=== PATIENT | female | born 1970 | race Caucasian/White ===

== ENCOUNTER 2018-01-24 21:19 | Inpatient (IN) | payer SELFPAY ==
[~2018-01-24] VITALS: Ht 167.6 cm; Wt 55.5 kg
[2018-01-24 21:25] VITALS: BP 80/43; PULSE 87; RESP 15; TEMP 97.8; O2SAT 100
[2018-01-24] MEDS ORDERED: THIAMINE INJ 100 MG in SODIUM CHLORIDE 0.9% INJ 100 ML IV ONE (21:45)
[2018-01-24] MEDS ORDERED: SODIUM CHLORID 0.9% 500 ML INJ 500 ML IV ONE (21:45)
--- NOTE | 2018-01-24 21:57 | PD ---
HPI Chief Complaint: Neuro Symptoms/ Deficits Time Seen by Provider: 21:28 Travel History International Travel<30 days: No Contact w/Intl Traveler<30days: No Traveled to known affect area: No History of Present Illness HPI The patient is a 47 year old female who presents to the [facility] emergency department with a history of slurred speech that reportedly began a couple of hours prior to arrival. The patient presents with her daughter. The patient has not been eating or drinking liquids well over the last week other than binge drinking on alcohol. The patient has a known history of alcohol abuse and alcohol-related withdrawal symptoms with alcohol related withdrawal seizures that last occurred 2 months ago. According to the patient she usually drinks a a bottle of wine every other day. She reports that she last drank wine yesterday evening. The patient denies having any one-sided weakness, numbness or tingling, or facial droop. The patient's daughter reports that she noticed that she was jaundiced, slightly yellow appearing today. She reports that she was jaundiced in the past, 2 years ago and at that time also diagnosed with a GI bleed related to peptic ulcer disease. Her daughter reports that she does not have a primary care physician. The patient is hesitant to provide her history due to difficulty speaking from the slurred speech. The patient arrives awake and aware, alert to person, place, situation, however not time. A review of systems otherwise, the patient has been complaining of abdominal pain. She reports that the pain over the last week has been in the lower abdomen. She reports that she last moved her bowels yesterday. She denies having any blood in her stool or black or tarry stools. She reports that her stool was brown. She denies having any vomiting. Review of systems otherwise she denies having any recent fevers, cough, congestion, neck pain, chest pain, shortness of breath, urinary symptoms, or other neurologic symptoms. The patient incidentally reports that 2-3 days ago she had left foot pain. The left foot pain is now resolved. Her daughter reports that she did give her a bottle of Tylenol arthritis for pain. She is unsure how many she took. [facility] Past Medical History Narrative Medical The patient's past medical history is significant for alcohol abuse, history of jaundice 2 years ago, history of peptic ulcer disease with a GI bleed 2 years ago. ?: Not Past Surgical History Narrative Surgical The patient's past surgical history is significant for tonsillectomy. Social History Alcohol Use: Yes (A bottle of wine every other day) Tobacco Use: No Substance Use: No Allergies-Medications (Allergen,Severity, Reaction): Coded Allergies: No Known Allergies (Verified Allergy, Unknown, 01/24/18) Narrative Medication One half of an alcohol-related withdrawal medication the patient's daughter cannot recall the name of. Review of Systems Except as stated in HPI: all other systems reviewed are Neg General / Constitutional: No: Fever Eyes: No: Visual changes HENT: No: Headaches Cardiovascular: No: Chest Pain or Discomfort Respiratory: No: Shortness of Breath Gastrointestinal: Positive: Abdominal Pain, Loss of Appetite, No: Nausea, Vomiting, Diarrhea, Changes in Bowel Habits, Indigestion Genitourinary: No: Dysuria Musculoskeletal: Positive: Myalgias, Pain Skin: No Rash Neurologic: Positive: Tremor, Slurred Speech, No: Weakness, Focal Abnormalities , Change in Mentation, Sensory Disturbance Psychiatric: No: Depression Endocrine: No: Polydipsia Hematologic/Lymphatic: No: Easy Bruising Physical Exam Narrative General: The patient is a well-developed well-nourished female in no acute distress. Head and Neck exam: Head is normocephalic atraumatic. Eyes: EOMI, pupils are equal round and reactive to light. She has slight conjunctival injection noted. Slight scleral icterus noted. Nose: Midline septum with pink mucous membranes Mouth: Dentition unremarkable. Dry mucus membranes. Posterior oropharynx is not erythematous. No tonsillar hypertrophy. Uvula midline. Airway patent. Neck: No palpable lymphadenopathy. No nuchal rigidity. No thyromegaly. Cardiovascular: Regular rate and rhythm without murmurs, gallops, or rubs. No pulse deficit to the extremities on simultaneous auscultation and palpation of her radial artery. Lungs: Clear to auscultation bilaterally. No wheezes, rhonchi, or rales. Abdomen: Soft, without tenderness to palpation in all 4 quadrants of the abdomen. No guarding, rebound, or rigidity. Normal bowel sounds are audible. No tenderness on palpation of McBurney's point. Extremities: No clubbing, cyanosis, or edema. 2+ pulses in all 4 extremities. No calf tenderness on palpation. Back: No costovertebral angle tenderness to palpation. Neurologic Exam: Cranial nerves 2-12 were intact on exam. Strength is 5/5 in all 4 extremities. No sensory deficits noted. Mildly tremulous on examination. No asterixis. Skin Exam: No rash noted. Intact skin that is warm and dry. Data Data Last Documented VS Vital Signs Date Time Temp Pulse Resp B/P (MAP) Pulse Ox O2 Delivery O2 Flow Rate FiO2 01/24/18 23:45 92 14 77/42 (54) 01/24/18 21:25 97.8 100 Room Air Orders Orders Electrocardiogram (01/24/18 21:29) Complete Blood Count With Diff (01/24/18 21:29) Comprehensive Metabolic Panel (01/24/18:29) Creatine Kinase (Cpk) (01/24/18 21:29) Troponin I (01/24/18 21:29) Prothrombin Time / Inr (Pt) (01/24/18 21:29) Act Partial Throm Time (Ptt) (01/24/18:29) Urinalysis - C+S If Indicated (01/24/18 21:29) Magnesium (Mg) (01/24/18 21:29) Ammonia (01/24/18 21:29) Chest, Single Ap (01/24/18 21:29) Ct Brain W/O Iv Contrast(Rout) (01/24/18 21:29) Iv Access Insert/Monitor (01/24/18 21:29) Ecg Monitoring (01/24/18 21:29) Oximetry (01/24/18 21:29) Ed Urine Pregnancytest Poc (01/24/18 21:29) Drug Screen, Random Urine (01/24/18 21:29) Alcohol (Ethanol) (01/24/18 21:29) Salicylates (Aspirin) (01/24/18 21:29) Tylenol (Acetaminophen) (01/24/18 21:29) Sodium Chlorid 0.9% 500 Ml Inj (Ns 500 M (01/24/18 21:45) Thiamine Inj (Thiamine Inj) (01/24/18 21:45) Blood Glucose (01/24/18 21:44) Foot, Limited (2vws) (01/24/18 21:57) Bedside Glucose Q15M (01/24/18 22:33) Hypoglycemia 70 Mg/Dl Or < (01/24/18 22:33) Dextrose 50% In Ed (Vial) Inj (D50w (Vi (01/24/18 22:45) Acetylcysteine Inj (Acetadote Inj) (01/24/18 23:30) Acetylcysteine Inj (Acetadote Inj) (01/25/18 00:30) Acetylcysteine Inj (Acetadote Inj) (01/25/18 04:30) CKMB (01/24/18 22:05) CKMB% (01/24/18 22:05) Sodium Chlor 0.9% 1000 Ml Inj (Ns 1000 M (01/24/18 23:30) Dextrose 5% In Wate 1000ml Inj (D5w 1000 (01/24/18 23:45) Ct Abd/Pel W/O Iv Contrast (01/24/18 23:33) Blood Glucose (01/24/18 23:33) Urinary Catheter Insert/Apply (01/24/18 23:33) Drug Screen, Random Urine (01/24/18 23:41) Admit To Inpatient (01/24/18 ) Code Status (01/24/18 23:43) Vital Signs (Adult) ROSELINE.Q1H (01/24/18 23:43) Elevate Head Of Bed (01/24/18 23:43) Activity Oob With Assistance (01/24/18 23:43) Neuro Checks . ORDERED (01/24/18 23:43) Intake + Output Q1H (01/24/18 23:43) Diet Npo (01/25/18 Breakfast) Sodium Chlor 0.9% 1000 Ml Inj (Ns 1000 M (01/24/18 23:43) Sodium Chloride 0.9% Flush (Ns Flush) (01/24/18 23:45) Sodium Chloride 0.9% Flush (Ns Flush) (01/25/18 09:00) Lorazepam Inj (Ativan Inj) (01/24/18 23:45) Ondansetron Inj (Zofran Inj) (01/24/18 23:45) Temazepam (Restoril) (01/24/18 23:45) Albuterol-Ipratropium Neb (Duoneb Neb) (01/24/18 23:45) Complete Blood Count With Diff (01/25/18 04:00) Comprehensive Metabolic Panel (01/25/18 04:00) Creatine Kinase (Cpk) (01/24/18 23:43) Act Partial Throm Time (Ptt) (01/25/18 04:00) Prothrombin Time / Inr (Pt) (01/25/18 04:00) Magnesium (Mg) (01/25/18 04:00) Phosphorus (Po4) (01/25/18 04:00) Lactic Acid (01/25/18 04:00) Pt Request For Service (01/24/18 23:43) Consult Gastroenterology (01/24/18 ) Avid Editor / Telemetry ROSELINE.Q8H (01/24/18 23:43) Scd Bilateral/Knee High ROSELINE.BID (01/24/18 23:43) Aki Bilateral/Knee High ROSELINE.QSHIFT (01/24/18 23:43) ^ Initiate Protocol (01/24/18 23:43) Instruction (01/24/18 23:43) Misc Nursing Information (01/24/18 23:45) Chlorhexidine 2% Cloth (Chlorhexidine 2% (01/25/18 04:00) Chlorhexidine 2% Cloth (Chlorhexidine 2% (01/24/18 23:45) Mrsa Pcr Surveillance (01/24/18 23:43) Docusate Sodium-Senna (Latoya-Colace) (01/25/18 09:00) Magnesium Hydroxide Liq (Milk Of Magnesi (01/24/18 23:45) Sennosides (Senokot) (01/24/18 23:45) Bisacodyl Supp (Dulcolax Supp) (01/24/18 23:45) Lactulose Liq (Lactulose Liq) (01/24/18 23:45) Inpatient Certification (01/24/18 ) Us Abdomen Liver (01/24/18 ) Pantoprazole Inj (Protonix Inj) (01/25/18 00:00) Hepatitis Profile (01/24/18 23:57) Multivitamin Inj (Mvi-12 Inj)... (01/25/18 02:00) Hydromorphone Pf Inj (Dilaudid Pf Inj) (01/25/18 00:15) Basic Metabolic Panel (Bmp) (01/25/18 00:00) Beta Hydroxybutyrate (Acetone) (01/25/18 00:00) Osmolality,Serum (01/25/18 00:00) Osmolality, Urine (01/25/18 00:00) Admit Order (Ed Use Only) (01/25/18 00:00) Dextrose 50% In Ed (Syr) Inj (D50w (Syr (01/25/18 00:00) Labs Laboratory Tests Test 01/24/18 22:05 White Blood Count 17.2 TH/MM3 Red Blood Count 3.77 MIL/MM3 Hemoglobin 12.3 GM/DL Hematocrit 38.6 % Mean Corpuscular Volume 102.6 FL Mean Corpuscular Hemoglobin 32.7 PG Mean Corpuscular Hemoglobin Concent 31.9 % Red Cell Distribution Width 13.7 % Platelet Count 53 TH/MM3 Mean Platelet Volume 9.4 FL Neutrophils (%) (Auto) 93.3 % Lymphocytes (%) (Auto) 4.5 % Monocytes (%) (Auto) 2.0 % Eosinophils (%) (Auto) 0.1 % Basophils (%) (Auto) 0.1 % Neutrophils # (Auto) 16.1 TH/MM3 Lymphocytes # (Auto) 0.8 TH/MM3 Monocytes # (Auto) 0.3 TH/MM3 Eosinophils # (Auto) 0.0 TH/MM3 Basophils # (Auto) 0.0 TH/MM3 CBC Comment AUTO DIFF Differential Total Cells Counted 100 Neutrophils % (Manual) 50 % Band Neutrophils % 44 % Lymphocytes % 5 % Neutrophils # (Manual) 16.3 TH/MM3 Myelocytes 1 % Differential Comment FINAL DIFF MANUAL Toxic Vacuolation PRESENT Platelet Estimate LOW Platelet Morphology Comment NORMAL Prothrombin Time 50.7 SEC Prothromb Time International Ratio 5.1 RATIO Activated Partial Thromboplast Time 49.2 SEC Blood Urea Nitrogen 25 MG/DL Creatinine 3.36 MG/DL Random Glucose 42 MG/DL Total Protein 6.7 GM/DL Albumin 3.9 GM/DL Calcium Level 8.7 MG/DL Magnesium Level 2.6 MG/DL Alkaline Phosphatase 275 U/L Aspartate Amino Transf (AST/SGOT) 37103 U/L Alanine Aminotransferase (ALT/SGPT) 3107 U/L Total Bilirubin 6.5 MG/DL Sodium Level 126 MEQ/L Potassium Level 5.0 MEQ/L Chloride Level 79 MEQ/L Carbon Dioxide Level 7.5 MEQ/L Anion Gap 40 MEQ/L Estimat Glomerular Filtration Rate 15 ML/MIN Total Creatine Kinase 891 U/L Creatine Kinase MB 14.6 NG/ML Creatine Kinase MB % 1.6 % Troponin I 0.22 NG/ML Salicylates Level LESS THAN 1.7 MG/DL Acetaminophen Level 29.4 MCG/ML Ethyl Alcohol Level LESS THAN 3 MG/DL MDM Medical Decision Making Medical Screen Exam Complete: Yes Emergency Medical Condition: Yes Medical Record Reviewed: Yes Differential Diagnosis Alcohol related withdrawal syndrome, versus dehydration, versus acute renal failure, versus hepatic encephalopathy, versus Tylenol toxicity Narrative Course During the course of the patient's emergency department visit, the patient's history, examination, and differential diagnosis were reviewed with the patient. The patient was placed on a lacquer polisher with oximetry and frequent blood pressure monitoring. The patient had IV access obtained and blood work sent for analysis. The patient had an EKG done on arrival that shows a sinus rhythm heart rate of 92, QRS duration 103 ms, QTC [address] segment elevation.The patient was initially provided normal saline at 500 mL bolus, thiamine 100 mg IV. An Accu-Chek will be done. The patient's Accu-Chek was reportedly 50. The patient was given orange juice. The patient was given a half amp of D50. Repeat evaluation the patient' s blood sugar was noted to be 45. Another half amp of D50 was administered. The patient was started on D5W at a maintenance rate. The patient's INR is 5.1. As the patient is not on any anticoagulation a call was placed out to the lab to request the patient's Tylenol level which was still pending. They reported that the patient was having her blood further diluted as a Tylenol level was noted to be elevated. Acetadote was written to be started. Poison control was contacted. The Tylenol level ultimately ended up being 29.4. The patient's laboratory studies were reviewed and remarkable for white count of 17.2, hemoglobin 12.3, platelets 53, neutrophils 50, bands 44, lymphocytes 5 , CMP is remarkable for sodium of 126, chloride 79, CO2 7.5, BUN 25, anion gap 40, creatinine 3.36, glucose 42, magnesium 2.6, total bilirubin 6.5, AST 21,929 , ALT 31, alk phos 275, CPK 891 with an MB percent of 1.6, troponin I 0.22, serum osmolality is 306, ammonia level is elevated at 260. Radiology studies were reviewed and remarkable for a CT scan of the brain that showed no acute abnormality. Chest x-ray showed no acute abnormality. Left foot x-ray showed no acute abnormality. The patient was difficult to obtain IV access and. The patient had an ultrasound obtained IV and her extremity, however as she was altered she moved around and the IV infiltrated. A second ultrasound-guided IV was placed in her other arm. The patient required additional access, therefore an external jugular IV was placed by me in the right side of the patient's neck with an 18- gauge Angiocath. The patient tolerated the procedure well. A Patel catheter was placed to gravity to monitor the patient's urine output due to her acute renal failure. The patient had additional IV fluids administered, a second liter of normal saline was administered. The patient's results were discussed with the patient, including the plan of care. I explained that further testing and/ or monitoring is indicated based on the patient's history, examination, and/ or laboratory findings. Therefore, I recommended admission for additional evaluation. The patient expressed understanding and was agreeable with this plan. The patient was admitted to the hospital in critical condition and sent to a bed under the care of the head strength and conditioning coach service. Critical Care Narrative Aggregate critical care time was 41 minutes. Time to perform other separately billable procedures was not included in the critical care time. My time did not include minutes spent treating any other patients simultaneously or on activities that did not directly contribute to the patient's treatment. The services I provided to this patient were to treat and/or prevent clinically significant deterioration that could result in: Respiratory failure related to fluid overload from crystalloid resuscitation , versus cardiovascular collapse I provided critical care services requiring my management, as noted below: Chart data review, documentation time, medication orders and management, vital sign assessments/reviewing monitor data, ordering and reviewing lab tests, ordering and interpreting/reviewing x-rays and diagnostic studies, care of the patient and discussion of the patient with the admitting physicians. Physician Communication Physician Communication The patient's case including history, pertinent physical examination findings, and laboratory studies were discussed with Dr. Pathak. It was agreed that the patient would be admitted to the head strength and conditioning coach's service. Diagnosis Primary Impression: Liver failure Qualified Codes: K72.00 - Acute and subacute hepatic failure without coma Additional Impression: Renal failure Qualified Codes: N17.9 - Acute kidney failure, unspecified Admitting Information Admitting Physician Requests: Admit Rina Simmons MD Jan 24, 2018 21:57
[2018-01-24 22:43] LABS: AUTOMATED NEUTROPHIL # 16.1 TH/MM3 (1.8-7.7); BASOPHIL % 0.1 % (0.0-2.0); EOSINOPHIL % 0.1 % (0.0-4.0); HEMATOCRIT 38.6 % (35.0-46.0); HEMOGLOBIN 12.3 GM/DL (11.6-15.3); LYMPH % 4.5 % (9.0-44.0); LYMPHOCYTE # 0.8 TH/MM3 (1.0-4.8); MEAN CELL VOLUME 102.6 FL (80.0-100.0); MEAN CORPUSCULAR HEMOGLOBIN 32.7 PG (27.0-34.0); MEAN CORPUSCULAR HGB CONC 31.9 % (32.0-36.0); MEAN PLATELET VOLUME 9.4 FL (7.0-11.0); MONOCYTE # 0.3 TH/MM3 (0-0.9); NEUT % 93.3 % (16.0-70.0); PLATELET COUNT 53 TH/MM3 (150-450); RED BLOOD COUNT 3.77 MIL/MM3 (4.00-5.30); RED CELL DISTRIBUTION WIDTH 13.7 % (11.6-17.2); WHITE BLOOD COUNT 17.2 TH/MM3 (4.0-11.0)
[2018-01-24 22:47] LABS: INTERNATIONAL NORMALIZED RATIO 5.1 RATIO; PROTHROMBIN TIME - PATIENT 50.7 SEC (9.8-11.6)
--- NOTE | 2018-01-24 23:02 | RADRPT ---
EXAM DATE/TIME: 01/24/2018 22:53 [facility] COMPARISON: No previous studies available for comparison. INDICATIONS : Weakness with slurred speech. RADIATION DOSE: 36.51 CTDIvol (mGy) MEDICAL HISTORY : None SURGICAL HISTORY : None. ENCOUNTER: Initial ACUITY: 1 day PAIN SCALE: 0/10 LOCATION: cranial TECHNIQUE: Multiple contiguous axial images were obtained of the head. Using automated exposure control and adj ustment of the mA and/or kV according to patient size, radiation dose was kept as low as reasonably a chievable to obtain optimal diagnostic quality images. DICOM format image data is available electro nically for review and comparison. FINDINGS: CEREBRUM: Mild diffuse cerebral volume loss. The ventricles are normal for age. No evidence of midline shift, mass lesion, hemorrhage or acute infarction. No extra-axial fluid collections are seen. POSTERIOR FOSSA: Moderate cerebellar volume loss. The cerebellum and brainstem are intact. The 4th ventricle is midli ne. The cerebellopontine angle is unremarkable. EXTRACRANIAL: The visualized portion of the orbits is intact. SKULL: The calvaria is intact. No evidence of skull fracture. CONCLUSION: 1. Mild cerebral and moderate cerebellar volume loss, out of proportion to age. 2. No acute intracranial abnormality. Enrico Guo MD on January 24, 2018 at 23:00 Board Certified Radiologist. This report was verified electronically.
--- NOTE | 2018-01-24 23:09 | RADRPT ---
EXAM DATE/TIME: 01/24/2018 22:42 [facility] COMPARISON: No previous studies available for comparison. INDICATIONS : New onset of neurological deficits and slurred speech. MEDICAL HISTORY : None. SURGICAL HISTORY : None. ENCOUNTER: Initial ACUITY: 1 day PAIN SCORE: 0/10 LOCATION: Bilateral chest FINDINGS: A single view of the chest demonstrates the lungs to be symmetrically aerated without evidence of mas s, infiltrate or effusion. The cardiomediastinal contours are unremarkable. Osseous structures are intact. CONCLUSION: 1. No acute cardiopulmonary disease. Enrico Guo MD on January 24, 2018 at 23:08 Board Certified Radiologist. This report was verified electronically.
--- NOTE | 2018-01-24 23:10 | RADRPT ---
EXAM DATE/TIME: 01/24/2018 22:45 [facility] COMPARISON: No previous studies available for comparison. INDICATIONS : Pain. MEDICAL HISTORY : None. SURGICAL HISTORY : None. ENCOUNTER: Initial ACUITY: 1 day PAIN SCORE: 10 LOCATION: Left foot FINDINGS: Two view examination of the left foot demonstrates no soft tissue swelling, dislocation, or fracture. The calcaneus is intact. Bony mineralization is normal. CONCLUSION: 1. No acute fracture or dislocation. Enrico Guo MD on January 24, 2018 at 23:09 Board Certified Radiologist. This report was verified electronically.
[2018-01-24] MEDS: DEXTROSE 50% IN WATER 50 ML VIAL(D50) IV PUSH PRN (23:17)
[2018-01-24 23:22] LABS: ACETAMINOPHEN 29.4 MCG/ML (10.0-30.0); ALBUMIN 3.9 GM/DL (3.4-5.0); ALKALINE PHOSPHATASE 275 U/L (45-117); BICARBONATE 7.5 MEQ/L (21.0-32.0); BLOOD UREA NITROGEN 25 MG/DL (7-18); CALCIUM 8.7 MG/DL (8.5-10.1); CHLORIDE 79 MEQ/L (98-107); CREATININE 3.36 MG/DL (0.50-1.00); GLOMERULAR FILTRATION RATE 15 ML/MIN (>89); MAGNESIUM 2.6 MG/DL (1.5-2.5); SODIUM (NA) 126 MEQ/L (136-145); TOTAL BILIRUBIN ADULT 6.5 MG/DL (0.2-1.0); TOTAL PROTEIN 6.7 GM/DL (6.4-8.2); TROPONIN I 0.22 NG/ML (0.02-0.05)
[2018-01-24 23:24] LABS: ALT (GPT) 3107 U/L (10-53)
[2018-01-24] MEDS ORDERED: WATER IV ONE ×2 (23:30)
[2018-01-24] MEDS ORDERED: SODIUM CHLOR 0.9% 1000 ML INJ 1,000 ML IV ONE (23:30)
[2018-01-24] MEDS ORDERED: DEXTROSE 5% IV ONE ×2 (23:30)
[2018-01-24] MEDS ORDERED: ACETYLCYSTEINE IV ONE ×2 (23:30)
--- NOTE | 2018-01-24 23:42 | HHI.HP ---
[facility] Service Critical Care Medicine Primary Care Physician No Primary Care Physician Admission Diagnosis Diagnosis: Travel History International Travel<30 Days: No Contact w/Intl Traveler <30 Da: No Traveled to Known Affected Are: No History of Present Illness 47 year old female who presents to the [facility] emergency department with a history of slurred speech that reportedly began a couple of hours prior to arrival. The patient presents with her daughter. The patient has not been eating or drinking liquids well over the last week other than binge drinking on alcohol. The patient has a known history of alcohol abuse and alcohol-related withdrawal symptoms with alcohol related withdrawal seizures that last occurred 2 months ago. According to the patient she usually drinks a a bottle of wine every other day. She reports that she last drank wine yesterday evening. The patient denies having any one-sided weakness, numbness or tingling, or facial droop. The patient's daughter reports that she noticed that she was jaundiced, slightly yellow appearing today. She reports that she was jaundiced in the past , 2 years ago and at that time also diagnosed with a GI bleed related to peptic ulcer disease. Her daughter reports that she does not have a primary care physician. The patient is hesitant to provide her history due to difficulty speaking from the slurred speech. She reports also the pain over the last week that has been in the lower abdomen. She reports that she last moved her bowels yesterday. She denies having any blood in her stool or black or tarry stools. She reports that her stool was brown. She denies having any vomiting. Her daughter reports that she did give her a bottle of Tylenol arthritis for pain. She is unsure how many she took. Review of Systems Constitutional: COMPLAINS OF: Fatigue, Dizziness, Change in appetite, DENIES: Diaphoretic episodes, Fever, Weight gain, Weight loss, Chills, Night Sweats Endocrine: DENIES: Abnorml menstrual pattern, Heat/cold intolerance, Polydipsia , Polyuria, Polyphagia Eyes: DENIES: Blurred vision, Diplopia, Eye inflammation, Eye pain, Vision loss , Photosensitivity, Double Vision Ears, nose, mouth, throat: DENIES: Tinnitus, Hearing loss, Vertigo, Nasal discharge, Oral lesions, Throat pain, Hoarseness, Ear Pain, Running Nose, Epistaxis, Sinus Pain, Toothache, Odynophagia Respiratory: DENIES: Apneas, Cough, Snoring, Wheezing, Hemoptysis, Sputum production, Shortness of breath Cardiovascular: DENIES: Chest pain, Palpitations, Syncope, Dyspnea on Exertion , PND, Lower Extremity Edema, Orthopnea, Claudication Gastrointestinal: COMPLAINS OF: Abdominal pain, Anorexia, DENIES: Black stools , Bloody stools, Constipation, Diarrhea, Nausea, Vomiting, Difficulty Swallowing Genitourinary: DENIES: Abnormal vaginal bleeding, Dysmenorrhea, Dyspareunia, Sexual dysfunction, Urinary frequency, Urinary incontinence, Urgency, Hematuria , Dysuria, Nocturia, Vaginal discharge Musculoskeletal: COMPLAINS OF: Joint pain, DENIES: Muscle aches, Stiffness, Joint Swelling, Back pain, Neck pain Integumentary: DENIES: Abnormal pigmentation, Pruritus, Rash, Nail changes, Breast masses, Breast skin changes, Nipple discharge Hematologic/lymphatic: DENIES: Bruising, Lymphadenopathy Immunologic/allergic: DENIES: Eczema, Urticaria Neurologic: DENIES: Abnormal gait, Headache, Localized weakness, Paresthesias, Seizures, Speech Problems, Tremor, Poor Balance Psychiatric: COMPLAINS OF: Anxiety, DENIES: Confusion, Mood changes, Depression , Hallucinations, Agitation, Suicidal Ideation, Homicidal Ideation, Delusions Past Family Social History Allergies: Coded Allergies: No Known Allergies (Verified Allergy, Unknown, 01/24/18) Past Medical History Alcoholism Alcohol withdrawal seizures Peptic ulcer disease Arthritis Past Surgical History No significant surgical history Reported Medications None Active Ordered Medications Current Medications Medications (Trade) Dose Ordered Sig/Marli Route PRN Reason Start Time Stop Time Status Last Admin Dose Admin Dextrose (D50w (Vial) Inj) 25 ml UNSCH PRN IV PUSH HYPOGLYCEMIA-SEE COMMENTS 01/24/18 22:45 01/24/18 23:17 Acetylcysteine 9000 mg/Dextrose 245 ml @ 245 mls/hr ONCE ONCE IV 01/24/18 23:30 01/25/18 00:29 Acetylcysteine 3000 mg/Dextrose 515 ml @ 128.75 mls/ hr ONCE ONCE IV 01/25/18 00:30 01/25/18 04:29 Acetylcysteine 6000 mg/Dextrose 1,030 ml @ 64.375 mls/ hr ONCE ONCE IV 01/25/18 04:30 01/25/18 20:29 Sodium Chloride 1,000 ml @ 1,000 mls/hr Q1H ONCE IV 01/24/18 23:30 01/25/18 00:29 Dextrose 1,000 ml @ 100 mls/hr Q10H IV 01/24/18 23:45 Sodium Chloride 1,000 ml @ 84 mls/hr [id number] IV 01/24/18 23:43 Sodium Chloride (NS Flush) 2 ml UNSCH PRN IV FLUSH FLUSH AFTER USING IV ACCESS 01/24/18 23:45 Sodium Chloride (NS Flush) 2 ml BID IV FLUSH 01/25/18 09:00 Hydromorphone HCl (Dilaudid Pf Inj) 1 mg Q4H PRN IV PUSH PAIN SCALE 6 TO 10 01/24/18 23:45 UNV Pantoprazole Sodium (Protonix Inj) 40 mg Q12H IV PUSH 01/25/18 00:00 Lorazepam (Ativan Inj) 2 mg Q4H PRN IV PUSH Agitation/Sedation 01/24/18 23:45 Ondansetron HCl (Zofran Inj) 4 mg Q6H PRN IV PUSH NAUSEA OR VOMITING 01/24/18 23:45 Temazepam (Restoril) 15 mg HS PRN PO INSOMNIA 01/24/18 23:45 Albuterol/ Ipratropium (Duoneb Neb) 1 ampule Q2HR NEB PRN INH WHEEZING 01/24/18 23:45 Miscellaneous Information 1 [id number] XX 01/24/18 23:45 Chlorhexidine Gluconate (Chlorhexidine 2% Cloth) 3 pack Taper DAILY@04 TOP 01/25/18 04:00 01/21/19 03:59 Chlorhexidine Gluconate (Chlorhexidine 2% Cloth) 3 pack UNSCH PRN TOP HYGIENIC CARE 01/24/18 23:45 Senna/Docusate Sodium (Latoya-Colace) 1 tab BID PO 01/25/18 09:00 Magnesium Hydroxide (Milk Of Magnesia Liq) 30 ml Q12H PRN PO Mild constipation 01/24/18 23:45 Sennosides (Senokot) 17.2 mg Q12H PRN PO Moderate constipation 01/24/18 23:45 Bisacodyl (Dulcolax Supp) 10 mg DAILY PRN RECTAL SEVERE CONSITIPATION 01/24/18 23:45 Lactulose (Lactulose Liq) 30 ml DAILY PRN PO SEVERE CONSITIPATION 01/24/18 23:45 Multivitamins 10 ml/Thiamine HCl 100 mg/Folic Acid 1 mg/Dextrose/ Sodium Chloride 511.2 ml @ 125 mls/hr Q24H IV 01/25/18 02:00 UNV Family History No family history significant of liver failure Social History Alcohol Use: Yes (A bottle of wine every other day) Tobacco Use: No Substance Use: No Physical Exam Vital Signs Vital Signs Date Time Temp Pulse Resp B/P (MAP) Pulse Ox O2 Delivery O2 Flow Rate FiO2 01/24/18 21:25 97.8 87 15 80/43 (55) 100 Room Air Physical Exam GENERAL: Well-nourished, well-developed patient. SKIN: Warm and dry. HEAD: Normocephalic. EYES: No scleral icterus. No injection or drainage. NECK: Supple, trachea midline. No JVD or lymphadenopathy. CARDIOVASCULAR: Regular rate and rhythm without murmurs, gallops, or rubs. RESPIRATORY: Breath sounds equal bilaterally. No accessory muscle use. GASTROINTESTINAL: Abdomen soft, non-tender, nondistended. MUSCULOSKELETAL: No cyanosis, or edema. BACK: Nontender without obvious deformity. NEURO EXAM: GCS: 14 Mental Status: The patient is alert and oriented to person, place, not to time with slurred speech. Laboratory Laboratory Tests Test 01/24/18 22:05 White Blood Count 17.2 Red Blood Count 3.77 Hemoglobin 12.3 Hematocrit 38.6 Mean Corpuscular Volume 102.6 Mean Corpuscular Hemoglobin 32.7 Mean Corpuscular Hemoglobin Concent 31.9 Red Cell Distribution Width 13.7 Platelet Count 53 Mean Platelet Volume 9.4 Neutrophils (%) (Auto) 93.3 Lymphocytes (%) (Auto) 4.5 Monocytes (%) (Auto) 2.0 Eosinophils (%) (Auto) 0.1 Basophils (%) (Auto) 0.1 Neutrophils # (Auto) 16.1 Lymphocytes # (Auto) 0.8 Monocytes # (Auto) 0.3 Eosinophils # (Auto) 0.0 Basophils # (Auto) 0.0 CBC Comment AUTO DIFF Prothrombin Time 50.7 Prothromb Time International Ratio 5.1 Activated Partial Thromboplast Time 49.2 Blood Urea Nitrogen 25 Creatinine 3.36 Random Glucose 42 Total Protein 6.7 Albumin 3.9 Calcium Level 8.7 Magnesium Level 2.6 Alkaline Phosphatase 275 Alanine Aminotransferase (ALT/SGPT) 3107 Total Bilirubin 6.5 Sodium Level 126 Potassium Level 5.0 Chloride Level 79 Carbon Dioxide Level 7.5 Anion Gap 40 Estimat Glomerular Filtration Rate 15 Total Creatine Kinase 891 Troponin I 0.22 Salicylates Level LESS THAN 1.7 Acetaminophen Level 29.4 Ethyl Alcohol Level LESS THAN 3 Result Diagram: 01/24/18220401/24/182204 Septic Shock Reassessment Septic shock perfusion: reassessment completed Caprini VTE Risk Assessment Caprini VTE Risk Assessment: Mod/High Risk (score >= 2) VTE Pharm Contraindication: Coagulopathy,INR elevated Caprini Risk Assessment Model Point Value = 1 Point Value = 2 Point Value = 3 Point Value = 5 Age 41-60 Minor surgery BMI > 25 kg/m2 Swollen legs Varicose veins or History of unexplained or recurrent spontaneous Oral contraceptives or hormone replacement Sepsis (< 1 month) Serious lung disease, including pneumonia (< 1 month) Abnormal pulmonary function Acute myocardial infarction Congestive heart failure (< 1 month) History of inflammatory bowel disease Medical patient at bed rest Age 61-74 Arthroscopic surgery Major open surgery (> 45 min) Laparoscopic surgery (> 45 min) Malignancy Confined to bed (> 72 hours) Immobilizing plaster cast Central venous access Age >= 75 History of VTE Family history of VTE Factor V Leiden Prothrombin 61823B Lupus anticoagulant Anticardiolipin antibodies Elevated serum homocysteine Heparin-induced thrombocytopenia Other congenital or acquired thrombophilia Stroke (< 1 month) Elective arthroplasty Hip, pelvis, or leg fracture Acute spinal cord injury (< 1 month) Prophylaxis Regimen Total Risk Factor Score Risk Level Prophylaxis Regimen 0-1 Low Early ambulation 2 Moderate Order ONE of the following: *Sequential Compression Device (SCD) *Heparin 5000 units SQ BID 3-4 Higher Order ONE of the following medications: *Heparin 5000 units SQ TID *Enoxaparin/Lovenox 40 mg SQ daily (WT < 150 kg, CrCl > 30 mL/min) *Enoxaparin/Lovenox 30 mg SQ daily (WT < 150 kg, CrCl > 10-29 mL/min) *Enoxaparin/Lovenox 30 mg SQ BID (WT < 150 kg, CrCl > 30 mL/min) AND/OR *Sequential Compression Device (SCD) 5 or more Highest Order ONE of the following medications: *Heparin 5000 units SQ TID (Preferred with Epidurals) *Enoxaparin/Lovenox 40 mg SQ daily (WT < 150 kg, CrCl > 30 mL/min) *Enoxaparin/Lovenox 30 mg SQ daily (WT < 150 kg, CrCl > 10-29 mL/min) *Enoxaparin/Lovenox 30 mg SQ BID (WT < 150 kg, CrCl > 30 mL/min) AND *Sequential Compression Device (SCD) Assessment and Plan Assessment and Plan Altered mental status - Underlying shock liver - Hyperammonemia - CT head negative - Underlying alcoholism - Treat ammonia with lactulose - Supportive care Liver failure - With coagulopathy and hyperammonemia - Hepatitis panel pending - Gastroenterology consultation - FFP's to correct INR to assure safety for central line placement - Lactulose to correct hyperammonemia - Poison Control Center contacted by ED for possible Tylenol toxicity, - possibly even with a small dose due to end-stage liver disease, - Poison Control Center input appreciated Hypotension - Shock - No history of fevers or any signs of infection - Albumin every 6 hours - Centerline when INR corrected - Levophed to keep map above 65 Alcoholism - Thiamine folate and multivitamins IV - Monitor for withdrawal - CIWA meds protocol - Seizure precaution Coagulopathy - Due to liver failure - Transfuse FFP's - Monitor trend Thrombocytopenia - Alcohol-induced - Transfuse if any signs of bleeding DVT GI prophylaxis - Teds SCDs - No pharmacological DVT prophylaxis due to severe coagulopathy - Protonix IV twice a day Critical Care: The total critical care time was 35 minutes. Time to perform other separately billable procedures was not included in the critical care time. Prognosis extremely poor, patient with alcohol use disorder now with fulminant liver failure not a candidate for transplantation. We'll consult palliative care medicine to assist with the goals of level of care. Ben Pathak MD Jan 24, 2018 11:42 pm
[2018-01-24] MEDS ORDERED: SODIUM CHLOR 0.9% 1000 ML INJ 1,000 ML IV SCH (23:43)
[2018-01-24 23:45] VITALS: BP 77/42; PULSE 92; RESP 14; O2SAT 95
[2018-01-24] MEDS ORDERED: CHLORHEXIDINE GLUCONATE 2 % 1 PACK (2 CLOTHS) TOP PRN (23:45)
[2018-01-24] MEDS ORDERED: RESP: ALBUTEROL 2.5 MG/IPRATROPIUM 0.5 MG NEB (PRN) INH (23:45)
[2018-01-24] MEDS ORDERED: TEMAZEPAM 15 MG CAP PO PRN (23:45)
[2018-01-24] MEDS ORDERED: LACTULOSE SYRUP 20 GM/30 ML CUP PO PRN (23:45)
[2018-01-24] MEDS ORDERED: MAGNESIUM HYDROXIDE SUSP 30 ML CUP PO PRN (23:45)
[2018-01-24] MEDS ORDERED: SODIUM CHLORIDE 0.9% FLUSH 10 ML FLUSH IV FLUSH PRN (23:45)
[2018-01-24] MEDS ORDERED: SENNOSIDES 8.6 MG TAB PO PRN (23:45)
[2018-01-24] MEDS ORDERED: ONDANSETRON HCL 4 MG/2 ML VIAL IV PUSH PRN (23:45)
[2018-01-24] MEDS ORDERED: MISCELLANEOUS NURSING INFORMATION XX SCH (23:45)
[2018-01-24] MEDS ORDERED: DEXTROSE 5% IN WATE 1000ML INJ 1,000 ML IV SCH (23:45)
[2018-01-24] MEDS ORDERED: LORazepam 2 MG/ML VIAL IV PUSH PRN (23:45)
[2018-01-24] MEDS ORDERED: BISACODYL 10 MG SUPP RECTAL PRN (23:45)
[2018-01-24 23:47] LABS: GLUCOSE,RANDOM 42 MG/DL (74-106)
[2018-01-25] VITALS (64 sets, daily range): BP systolic 56–167; BP diastolic 31–84; PULSE 0–110; RESP 12–37; TEMP 94.1–95.3; O2SAT 66–100
[2018-01-25] MEDS ORDERED: DEXTROSE 50% IN WATER 50 ML SYRINGE IV PUSH ONE
[2018-01-25] MEDS ORDERED: PANTOPRAZOLE SODIUM 40 MG VIAL IV PUSH SCH
[2018-01-25] MEDS: DEXTROSE 50% IN WATER 50 ML VIAL(D50) IV PUSH PRN (00:09)
[2018-01-25] MEDS ORDERED: HYDROmorphone HCL PF 2 MG/ML VIAL IV PUSH PRN (00:15)
[2018-01-25] MEDS ORDERED: WATE IV ONE ×4 (00:30→04:30)
[2018-01-25] MEDS ORDERED: ACETYLCYSTEINE IV ONE ×4 (00:30→04:30)
[2018-01-25] MEDS ORDERED: DEXTROSE 5% IV ONE ×4 (00:30→04:30)
[2018-01-25 00:32] LABS: AST (GOT) 21929 U/L (15-37)
[2018-01-25 00:43] LABS: BANDS 44 % (0-6); LYMPHOCYTES 5 % (9-44); MYELOCYTES 1 % (0-0); NEUTROPHIL # MANUAL DIFF 16.3 TH/MM3 (1.8-7.7); POLYS (SEG NEUTROPHILS) 50 % (16-70)
[2018-01-25 00:44] LABS: TOXIC VACUOLATION PRESENT (NONE SEEN)
[2018-01-25 00:48] LABS: AMORPHOUS SEDIMENT, URINE OCC; BACTERIA, URINE MANY /hpf; BILIRUBIN, URINE NEG (NEG); BLOOD, URINE MOD (NEG); GLUCOSE,URINE NEG (NEG); KETONE, URINE TRACE mg/dL (NEG); NITRITE,URINE NEG (NEG); PH, URINE 5.5 (5.0-8.5); URINE COLOR DARK-YELLOW (YELLW/STRAW); URINE LEUKOCYTE ESTERASE NEG (NEG)
--- NOTE | 2018-01-25 00:51 | RADRPT ---
EXAM DATE/TIME: 01/25/2018 00:07 [facility] COMPARISON: No previous studies available for comparison. INDICATIONS : Increased lab values. MEDICAL HISTORY : ETOH. SURGICAL HISTORY : Tonsillectomy. ENCOUNTER: Initial ACUITY: 1 day PAIN SCORE: 0/10 LOCATION: Abdomen. MEASUREMENTS: LIVER: 16.7 cm length COMMON DUCT: 4 mm RIGHT KIDNEY: 10.0 x 4.8 x 4.9 cm SPLEEN: 9.5 cm length FINDINGS: LIVER: Diffusely increased hepatic echogenicity without evidence for volume loss. Liver is mildly enlarged. No significant focal mass or intrahepatic ductal dilatation. COMMON DUCT: No intraluminal mass or stone visualized. GALLBLADDER: Call one wall prominence measuring up to 7 mm. No stones, pericholecystic fluid or sonographic Riley sign. PANCREAS: The visualized portions are within normal limits. RIGHT KIDNEY: No hydronephrosis, stone or mass. SPLEEN: No focal lesion. CONCLUSION: 1. Hepatomegaly with diffusely increased echogenicity consistent with hepatic steatosis versus medica l liver disease. 2. Gallbladder wall thickening without cholelithiasis. Gallbladder wall prominence is somewhat nonspe cific and may be seen with chronic liver disease and hypoalbuminemia amongst other etiologies. Enrico Guo MD on January 25, 2018 at 0:47 Board Certified Radiologist. This report was verified electronically.
[2018-01-25] MEDS ORDERED: VANCOMYCIN INJ 1,000 MG in SODIUM CHLOR 0.9% 250 ML INJ 250 ML IV ONE (01:00)
[2018-01-25] MEDS ORDERED: PIPERACIL-TAZO 3.375 GM PREMIX 50 ML IV ONE (01:00)
[2018-01-25] MEDS: ALBUMIN 5% INJ 500 ML IV SCH ×3 (01:07→07:34)
[2018-01-25 01:31] LABS: BICARBONATE 8.3 MEQ/L (21.0-32.0); CALCIUM 6.8 MG/DL (8.5-10.1); CREATININE 3.08 MG/DL (0.50-1.00)
[2018-01-25] MEDS ORDERED: NOREPINEPHRINE-DEXTROSE DRIP 250 ML IV ONE (01:38)
[2018-01-25 01:44] LABS: CALCIUM-PROTEIN CORRECTED 7.8 MG/DL (8.5-10.1); TOTAL PROTEIN 5.2 GM/DL (6.4-8.2)
[2018-01-25] MEDS ORDERED: MULTIVITAMIN INJ 10 ML, THIAMINE INJ 100 MG, FOLIC ACID INJ 1 MG in DEXT 5%-NACL 0.9% 5... IV SCH (02:00)
[2018-01-25] MEDS ORDERED: NOREPINEPHRINE 4 MG/D5W 250 ML IV PRN (02:00)
[2018-01-25 03:58] LABS: CREATININE 3.03 MG/DL (0.50-1.00)
[2018-01-25 03:59] LABS: ALBUMIN 3.7 GM/DL (3.4-5.0); CALCIUM 7.1 MG/DL (8.5-10.1); CALCIUM-PROTEIN CORRECTED 7.6 MG/DL (8.5-10.1); TOTAL PROTEIN 6.1 GM/DL (6.4-8.2)
[2018-01-25 04:00] LABS: BICARBONATE 6.5 MEQ/L (21.0-32.0); MAGNESIUM 2.3 MG/DL (1.5-2.5); TOTAL BILIRUBIN ADULT 5.7 MG/DL (0.2-1.0)
[2018-01-25] MEDS ORDERED: CHLORHEXIDINE GLUCONATE 2 % 1 PACK (2 CLOTHS) TOP SCH (04:00)
[2018-01-25] MEDS ORDERED: DEXTROSE 50% IN WATER 50 ML VIAL(D50) IV PUSH ONE (05:15)
[2018-01-25] MEDS ORDERED: CALCIUM GLUCONATE INJ 2 GM in SODIUM CHLORIDE 0.9% INJ 100 ML IV ONE (05:15)
[2018-01-25] MEDS ORDERED: INSULIN HUMAN REGULAR 1,000 UNITS/10 ML VIAL IV PUSH ONE (05:15)
[2018-01-25] MEDS ORDERED: SODIUM BICARBONATE 8.4% INJ 150 MEQ in DEXTROSE 5% IN WATE 1000ML INJ 1,000 ML IV SCH ×2 (05:15)
[2018-01-25] MEDS ORDERED: SODIUM BICARBONATE 8.4% INJ 50 MEQ/50 ML SYR IV PUSH ONE ×2 (05:15→07:00)
[2018-01-25] MEDS ORDERED: MIDAZOLAM HCL 5 MG/ML VIAL (1 ML) ONE (06:00)
[2018-01-25] MEDS ORDERED: MIDAZOLAM HCL 5 MG/ML VIAL (1 ML) IV ONE (06:02)
--- NOTE | 2018-01-25 06:19 | PD.PROCEDR ---
Procedure Note Procedure Endotracheal Intubation A time-out was completed verifying correct patient, procedure, site, positioning , and special equipment if applicable. The patient was placed in a flat position. Sedation was obtained using Etomidate 20mg. The patient was easily ventilated using an ambu bag. The [employer]/ MAC 4 BLADE was used and inserted into the oropharynx at which time there was a Grade 1 view of the vocal cords. A 8-turkmen endotracheal tube was inserted and visualized going through the vocal cords. The stylette was removed. Colorimetric change was visualized on the CO2 meter. Breath sounds were heard in both lung batista equally. The endotracheal tube was placed at 23 cm, measured at the teeth. A chest x-ray was ordered to assess for pneumothorax and verify endotrachealtube placement. Estimated Blood Loss: 0 The patient tolerated the procedure well and there were no complications. Ben Pathak MD Jan 25, 2018 06:19
--- NOTE | 2018-01-25 06:20 | PD.PROCEDR ---
Procedure Note Procedure Centerline placement A time-out was completed verifying correct patient, procedure, site, positioning , and special equipment if applicable. The patient was placed in a dependent position appropriate for central line placement based on the vein to be cannulated. The patients left neck was prepped and draped in sterile fashion. 1 % Lidocaine was used to anesthetize the surrounding skin area. A triple lumen 9 Czech Cordis catheter was introduced into the the internal jugular vein using the Seldinger technique and under ultrasound guidance. The catheter was threaded smoothly over the guide wire and appropriate blood return was obtained. Each lumen of the catheter was evacuated of air and flushed with sterile saline. The catheter was then sutured in place to the skin and a sterile dressing applied. Perfusion to the extremity distal to the point of catheter insertion was checked and found to be adequate. Estimated Blood Loss: 1ml The patient tolerated the procedure well and there were no complications. Ben Pathak MD Jan 25, 2018 06:20
[2018-01-25] MEDS ORDERED: SODIUM CHLOR 0.9% 1000 ML INJ 1,000 ML IV ONE ×3 (06:30→08:45)
[2018-01-25] MEDS ORDERED: SODIUM POLYSTYRENE SULFONATE SUSP 15 GM/60 ML CUP RECTAL ONE (06:30)
[2018-01-25] MEDS ORDERED: SODIUM POLYSTYRENE SULFONATE SUSP 15 GM/60 ML CUP PO ONE (06:30)
--- NOTE | 2018-01-25 06:42 | RADRPT ---
EXAM DATE/TIME: 01/25/2018 06:15 [facility] COMPARISON: CHEST SINGLE AP, January 24, 2018, 22:42. INDICATIONS : ETT tube, central line, and O-G Tube placement post code. MEDICAL HISTORY : None. SURGICAL HISTORY : None. ENCOUNTER: Subsequent ACUITY: 2 days PAIN SCORE: Non-responsive. LOCATION: Bilateral chest FINDINGS: ETT at the level of the clavicles. NGT in the stomach. Left IJ central line with tip in the cavoatria l junction. Diffuse bilateral airspace consolidation. The no thorax. Cardiomediastinal contours are w ithin normal limits. Bony thorax is intact. CONCLUSION: 1. Lines and tubes, as above. 2. Diffuse bilateral airspace consolidation consistent with diffuse infection versus developing ARDS. Enrico Guo MD on January 25, 2018 at 6:40 Board Certified Radiologist. This report was verified electronically.
[2018-01-25] MEDS ORDERED: Vancomycin Consult Pharmacy 1 EA OTHER SCH ×2 (06:45→07:00)
[2018-01-25] MEDS ORDERED: Custom Consult Pharmacy 1 EA OTHER SCH (06:45)
[2018-01-25] MEDS ORDERED: VASOPRESSIN INJ 40 UNITS in DEXTROSE 5% IN WATER 100ML INJ 98 ML IV SCH ×2 (06:49)
[2018-01-25] MEDS ORDERED: VASOPRESSIN 40 U/D5W 100 ML Titrate, Post Cardiac Surgery IV PRN ×2 (07:00)
[2018-01-25] MEDS ORDERED: PHENYLEPHRINE INJ 40 MG in DEXTROSE 5% IN WATE 500 ML INJ 496 ML IV PRN ×2 (07:00)
[2018-01-25] MEDS ORDERED: TERBUTALINE INJ 1 MG/ML AMP SQ PRN (07:00)
[2018-01-25] MEDS ORDERED: CALCIUM GLUCONATE 10% 1 GM/10 ML VIAL ONE (07:19)
[2018-01-25] MEDS ORDERED: DEXTROSE 50% IN WATER 50 ML VIAL(D50) IV PUSH PRN (07:30)
[2018-01-25] MEDS ORDERED: GLUCAGON 1 MG/ML VIAL OTHER PRN (07:30)
[2018-01-25] MEDS ORDERED: OCTREOTIDE INJ 50 MCG/ML AMP IV PUSH ONE (07:30)
[2018-01-25 07:35] LABS: AUTOMATED NEUTROPHIL # 6.6 TH/MM3 (1.8-7.7); EOSINOPHIL % 0.1 % (0.0-4.0); LYMPH % 7.5 % (9.0-44.0); LYMPHOCYTE # 0.5 TH/MM3 (1.0-4.8); MEAN CELL VOLUME 104.9 FL (80.0-100.0); MEAN CORPUSCULAR HEMOGLOBIN 34.1 PG (27.0-34.0); MEAN CORPUSCULAR HGB CONC 32.5 % (32.0-36.0); MEAN PLATELET VOLUME 8.2 FL (7.0-11.0); MONO % 1.7 % (0.0-8.0); MONOCYTE # 0.1 TH/MM3 (0-0.9); NEUT % 90.7 % (16.0-70.0); RED BLOOD COUNT 1.21 MIL/MM3 (4.00-5.30); RED CELL DISTRIBUTION WIDTH 13.6 % (11.6-17.2); WHITE BLOOD COUNT 7.3 TH/MM3 (4.0-11.0)
[2018-01-25] MEDS ORDERED: PHYTONADIONE 10 MG/D5W 50 ML IV ONE ×2 (07:45)
[2018-01-25 07:46] LABS: HEMATOCRIT 12.7 % (35.0-46.0); HEMOGLOBIN 4.1 GM/DL (11.6-15.3); PLATELET COUNT 19 TH/MM3 (150-450)
[2018-01-25 07:54] LABS: INTERNATIONAL NORMALIZED RATIO 2.8 RATIO; PROTHROMBIN TIME - PATIENT 28.2 SEC (9.8-11.6)
[2018-01-25] MEDS ORDERED: HYDROCORTISONE SOD SUCCINATE 100 MG VIAL IV PUSH SCH (08:00)
[2018-01-25] MEDS ORDERED: AZITHROMYCIN INJ 500 MG in SODIUM CHLOR 0.9% 250 ML INJ 250 ML IV SCH (08:00)
[2018-01-25] MEDS ORDERED: INSULIN NovoLIN REGULAR SUPPLEMENTAL SCALE SQ SCH (08:00)
[2018-01-25] MEDS ORDERED: cefTRIAXone INJ 2,000 MG in SODIUM CHLORIDE 0.9% INJ 100 ML IV SCH (08:00)
[2018-01-25] MEDS ORDERED: PANTOPRAZOLE INJ 80 MG in SODIUM CHLORIDE 0.9% INJ 35 ML IV ONE (08:17)
[2018-01-25] MEDS ORDERED: PANTOPRAZOLE INJ 80 MG in SODIUM CHLORIDE 0.9% INJ 100 ML IV SCH (08:17)
--- NOTE | 2018-01-25 08:20 | HHI.CCPN ---
Subjective Remarks/Hospital Course 47 year old female who presents to the [facility] emergency department with a history of slurred speech that reportedly began a couple of hours prior to arrival. The patient presents with her daughter. The patient has not been eating or drinking liquids well over the last week other than binge drinking on alcohol. The patient has a known history of alcohol abuse and alcohol-related withdrawal symptoms with alcohol related withdrawal seizures that last occurred 2 months ago. According to the patient she usually drinks a a bottle of wine every other day. She reports that she last drank wine yesterday evening. The patient denies having any one-sided weakness, numbness or tingling, or facial droop. The patient's daughter reports that she noticed that she was jaundiced, slightly yellow appearing today. She reports that she was jaundiced in the past , 2 years ago and at that time also diagnosed with a GI bleed related to peptic ulcer disease. Her daughter reports that she does not have a primary care physician. The patient is hesitant to provide her history due to difficulty speaking from the slurred speech. She reports also the pain over the last week that has been in the lower abdomen. She reports that she last moved her bowels yesterday. She denies having any blood in her stool or black or tarry stools. She reports that her stool was brown. She denies having any vomiting. Her daughter reports that she did give her a bottle of Tylenol arthritis for pain. She is unsure how many she took. 01/25 Patient s/p cardiac arrest now intubated and on multiple pressors ( Neosyn , Levo, Vaso) bicarb drip.. Objective Vital Signs Date Time Temp Pulse Resp B/P (MAP) Pulse Ox O2 Delivery O2 Flow Rate FiO2 01/25/18 07:45 101 91/52 01/25/18 06:00 100 01/25/18 05:55 96 01/25/18 05:31 95.3 20 01/25/18 01:00 Room Air Intake and Output 01/25/18 01/25/18 01/26/18 08:00 16:00 00:00 Intake Total 2699 ml Output Total 50 ml Balance 2649 ml Result Diagram: 01/25/18 0720 01/25/18 0251 Other Results Laboratory Tests Test 01/24/18 22:05 01/25/18 00:35 01/25/18 01:05 01/25/18 01:06 White Blood Count 17.2 TH/MM3 Red Blood Count 3.77 MIL/MM3 Hemoglobin 12.3 GM/DL Hematocrit 38.6 % Mean Corpuscular Volume 102.6 FL Mean Corpuscular Hemoglobin 32.7 PG Mean Corpuscular Hemoglobin Concent 31.9 % Red Cell Distribution Width 13.7 % Platelet Count 53 TH/MM3 Mean Platelet Volume 9.4 FL Neutrophils (%) (Auto) 93.3 % Lymphocytes (%) (Auto) 4.5 % Monocytes (%) (Auto) 2.0 % Eosinophils (%) (Auto) 0.1 % Basophils (%) (Auto) 0.1 % Neutrophils # (Auto) 16.1 TH/MM3 Lymphocytes # (Auto) 0.8 TH/MM3 Monocytes # (Auto) 0.3 TH/MM3 Eosinophils # (Auto) 0.0 TH/MM3 Basophils # (Auto) 0.0 TH/MM3 CBC Comment AUTO DIFF Differential Total Cells Counted 100 Neutrophils % (Manual) 50 % Band Neutrophils % 44 % Lymphocytes % 5 % Neutrophils # (Manual) 16.3 TH/MM3 Myelocytes 1 % Differential Comment FINAL DIFF MANUAL Toxic Vacuolation PRESENT Platelet Estimate LOW Platelet Morphology Comment NORMAL Prothrombin Time 50.7 SEC Prothromb Time International Ratio 5.1 RATIO Activated Partial Thromboplast Time 49.2 SEC Blood Urea Nitrogen 25 MG/DL 25 MG/DL Creatinine 3.36 MG/DL 3.08 MG/DL Random Glucose 42 MG/DL 188 MG/DL Total Protein 6.7 GM/DL 5.2 GM/DL Albumin 3.9 GM/DL Calcium Level 8.7 MG/DL 6.8 MG/DL Magnesium Level 2.6 MG/DL Alkaline Phosphatase 275 U/L Aspartate Amino Transf (AST/SGOT) 00272 U/L Alanine Aminotransferase (ALT/SGPT) 3107 U/L Total Bilirubin 6.5 MG/DL Sodium Level 126 MEQ/L 132 MEQ/L Potassium Level 5.0 MEQ/L 5.5 MEQ/L Chloride Level 79 MEQ/L 85 MEQ/L Carbon Dioxide Level 7.5 MEQ/L 8.3 MEQ/L Anion Gap 40 MEQ/L 39 MEQ/L Estimat Glomerular Filtration Rate 15 ML/MIN 16 ML/MIN Total Creatine Kinase 891 U/L Creatine Kinase MB 14.6 NG/ML Creatine Kinase MB % 1.6 % Troponin I 0.22 NG/ML Salicylates Level LESS THAN 1.7 MG/DL Acetaminophen Level 29.4 MCG/ML Ethyl Alcohol Level LESS THAN 3 MG/DL Urine Color DARK-YELLOW Urine Turbidity CLOUDY Urine pH 5.5 Urine Specific [place] 1.017 Urine Protein 300 mg/dL Urine Glucose (UA) NEG mg/dL Urine Ketones TRACE mg/dL Urine Occult Blood MOD Urine Nitrite NEG Urine Bilirubin NEG Urine Urobilinogen LESS THAN 2.0 MG/DL Urine Leukocyte Esterase NEG Urine WBC 2 /hpf Urine Amorphous Sediment OCC Urine Bacteria MANY /hpf Microscopic Urinalysis Comment CULTURE INDICATED Urine Osmolality 317 MOSM/KG Urine Opiates Screen NEG Urine Barbiturates Screen NEG Urine Amphetamines Screen NEG Urine Benzodiazepines Screen NEG Urine Cocaine Screen NEG Urine Cannabinoids Screen NEG Serum Osmolality 306 MOSM/KG Protein Corrected Calcium 7.8 MG/DL B-Hydroxybutyrate 0.76 MMOL/L Ammonia 260 MCMOL/L Test 01/25/18 01:30 01/25/18 02:51 01/25/18 06:47 01/25/18 07:20 Nasal Screen MRSA (PCR) MRSA NOT DETECTED Blood Urea Nitrogen 24 MG/DL Creatinine 3.03 MG/DL Random Glucose 211 MG/DL Total Protein 6.1 GM/DL Albumin 3.7 GM/DL Calcium Level 7.1 MG/DL Phosphorus Level 7.0 MG/DL Magnesium Level 2.3 MG/DL Alkaline Phosphatase 199 U/L Aspartate Amino Transf (AST/SGOT) 11427 U/L Alanine Aminotransferase (ALT/SGPT) 2447 U/L Total Bilirubin 5.7 MG/DL Sodium Level 131 MEQ/L Potassium Level 6.2 MEQ/L Chloride Level 83 MEQ/L Carbon Dioxide Level 6.5 MEQ/L Anion Gap 42 MEQ/L Estimat Glomerular Filtration Rate 16 ML/MIN Protein Corrected Calcium 7.6 MG/DL Total Creatine Kinase 1919 U/L Creatine Kinase MB 32.5 NG/ML Creatine Kinase MB % 1.7 % Blood Gas Puncture Site RT RADIAL Blood Gas Patient Temperature 98.6 Blood Gas HCO3 6 mmol/L Blood Gas Base Excess -23.1 mmol/L Blood Gas Oxygen Saturation 92 % Arterial Blood pH 6.96 Arterial Blood Partial Pressure CO2 29 mmHg Arterial Blood Partial Pressure O2 109 mmHg Arterial Blood Oxygen Content 7.0 Vol % Arterial Blood Carboxyhemoglobin 0.2 % Arterial Blood Methemoglobin 2.1 % Blood Gas Hemoglobin 5.2 G/DL Oxygen Delivery Device VENTILATOR Blood Gas Ventilator Setting PRVC12/500/1.0/+5 Blood Gas Inspired Oxygen 100 % White Blood Count 7.3 TH/MM3 Red Blood Count 1.21 MIL/MM3 Hemoglobin 4.1 GM/DL Hematocrit 12.7 % Mean Corpuscular Volume 104.9 FL Mean Corpuscular Hemoglobin 34.1 PG Mean Corpuscular Hemoglobin Concent 32.5 % Red Cell Distribution Width 13.6 % Platelet Count 19 TH/MM3 Mean Platelet Volume 8.2 FL Neutrophils (%) (Auto) 90.7 % Lymphocytes (%) (Auto) 7.5 % Monocytes (%) (Auto) 1.7 % Eosinophils (%) (Auto) 0.1 % Basophils (%) (Auto) 0.0 % Neutrophils # (Auto) 6.6 TH/MM3 Lymphocytes # (Auto) 0.5 TH/MM3 Monocytes # (Auto) 0.1 TH/MM3 Eosinophils # (Auto) 0.0 TH/MM3 Basophils # (Auto) 0.0 TH/MM3 CBC Comment AUTO DIFF Objective Remarks GENERAL: Well-nourished, well-developed patient critically ill on multiple pressors SKIN: Warm and dry. HEAD: Normocephalic. EYES: No scleral icterus. No injection or drainage. NECK: Supple, trachea midline. No JVD or lymphadenopathy. CARDIOVASCULAR: Regular rate and rhythm without murmurs, gallops, or rubs. RESPIRATORY: Breath sounds equal bilaterally. Coarse BS GASTROINTESTINAL: Abdomen soft, non-tender, nondistended. MUSCULOSKELETAL: No cyanosis, or edema. BACK: Nontender without obvious deformity. NEURO EXAM: Intubated, unresponsive A/P Assessment and Plan 1)VDRF 2)Septic shock 3)Acute fulminant hepatic failure 4) Hyperammonemia 5)ETOH abuse 6)ARF, Hyperkalemia 7)Coagulopathy 8)GI bleed 9)Anemia, thrombocytopenia/ DIC 10)Elevated LFT's multifactorial 2nd hepatic shock, Liver failure Plan: Neuro: Monitor neuro status, Continue Thiamine/MVI/Folic acid CT brain: No acute intracranial abnormalities Continue with Lactulose, add Rifaximin monitor Ammonia level Pulm:Continue with vent support keep sat >92% Bronchodilators, ICU vent bundle. CV: Continue with pressors ( Levo, Neosyn, Vaso) keep MAP>65mmHg Stress dose steroids- HC 100mg IVQ8 Check Lactic acid level, Increase bicarb drip D5W+3amps bicarb @150ml/hr GI: Keep NPO, place on Protonix and Octreotide drips GI consulted, follow up on Hep profile. Monitor LFT's, US liver: hepatic steatosis, GB wall thickening no cholelithiasis Continue Mucomyst Heme: Transfuse 4 units PRBC and 5u Cryo, s/p transfusion 4 u FFP, Monitor CBC, coags, Heme eval [facility] contacted by ED for possible Tylenol toxicity, : Monitor renal function, I/O's, avoid nephrotoxins Renal consulted. Hyperkalemia treated with IV insulin, D50, Bicarb, Ca and Kayexalate ID: Broad spectrum abx ( Vanco, Zosyn, Azithromycin) adjusted doses abx per renal function Check BC, sputum cx, follow up on urine cx, check strep pneumonia and Legionella urinary Ag, ID consulted Endo: SSI with acuchecks GI prophylaxis=- Protonix drip DVT prophylaxis- SCD, patient is coagulopathic and in DIC Lines: Right IJ CVP placed today Palliative care consulted to asses with goals of care Patient is critically ill with multiorgan failure. Discussed with patient's daughter at bedside. Poor prognosis CCT 60 mins Brenden Watkins MD Jan 25, 2018 08:20
[2018-01-25] MEDS ORDERED: RIFAXIMIN 550 MG TAB PO SCH (09:00)
[2018-01-25] MEDS ORDERED: PIPERACIL-TAZO 3.375 GM PREMIX 50 ML IV SCH (09:00)
[2018-01-25] MEDS ORDERED: LACTULOSE SYRUP 20 GM/30 ML CUP PO SCH (09:00)
[2018-01-25] MEDS ORDERED: PHYTONADIONE 10 MG/ML VIAL IV SCH (09:00)
[2018-01-25] MEDS ORDERED: DOCUSATE SODIUM 50 MG/SENNA 8.6 MG TAB PO SCH (09:00)
[2018-01-25] MEDS ORDERED: OCTREOTIDE INJ 500 MCG in SODIUM CHLORID 0.9% 500 ML INJ 499.5 ML IV SCH (09:00)
[2018-01-25] MEDS ORDERED: SODIUM CHLORIDE 0.9% FLUSH 10 ML FLUSH IV FLUSH SCH (09:00)
[2018-01-25 09:01] LABS: BANDS 20 % (0-6); LYMPHOCYTES 8 % (9-44); NEUTROPHIL # MANUAL DIFF 6.7 TH/MM3 (1.8-7.7); POLYS (SEG NEUTROPHILS) 72 % (16-70)
[2018-01-25 09:02] LABS: TOXIC GRANULATION 1+ (NORMAL); TOXIC VACUOLATION PRESENT (NONE SEEN)
[2018-01-25 09:05] LABS: ALBUMIN 2.9 GM/DL (3.4-5.0); BICARBONATE 11.2 MEQ/L (21.0-32.0); CALCIUM 5.8 MG/DL (8.5-10.1); CREATININE 2.94 MG/DL (0.50-1.00); TOTAL BILIRUBIN ADULT 2.9 MG/DL (0.2-1.0); TOTAL PROTEIN 4.4 GM/DL (6.4-8.2)
--- NOTE | 2018-01-25 09:59 | PD.CONS ---
Consult Service Palliative Care . Consult Requested By Dr. Pathak . Primary Care Physician No Primary Care Physician . Reason for Consultation a. To assist with evaluation and management of symptoms including: dyspnea, pain b. To assist medical decision maker(s) with: better understanding of current medical conditions; weighing benefits/burdens of medical treatment options; making medical treatment decisions. . HPI History of Present Illness Ms. Rey is a 47 year old with a history of EtOH abuse, previous GI bleed and peptic ulcer disease who presented to [facility] ED on 01/24/2018 with her daughter for evaluation of slurred speech that began a few hours prior to her arrival. Patient's intake had reportedly been poor over the previous week other than binge alcohol. Patient has a known history of history of EtOH abuse and associated alcohol withdrawal seizures recurred 2 months prior. Patient reported she drinks alcohol wine every other day. Patient denied having one- sided weakness, numbness or tingling, or facial droop. Her daughter reported she had noticed her mother appeared "slightly yellow" earlier in the day. Patient had similar symptoms 2 years ago at which time she was jaundice and diagnosed with a GI bleed secondary to peptic ulcer disease. Patient was alert to person, place, situation but not time. She was hesitant to provide a medical history because of her slurred speech. Patient reported a one-week history of lower abdominal pain. Her last reported bowel movement was the day before on 01/23/2018; she denied any blood in her stool or black, tarry stools. Of note, patient's daughter reports she gave her mother a bottle of Tylenol for arthritic pain but she does not know how many she took. Additional diagnostic data: * Vital signs: Pulse 87, respirations 15, BP 80/43, oxygen saturation 100% on room air, oral temperature 97.8 * WBC: 17.2, hemoglobin 12.3, hematocrit 38.6, platelets 53, neutrophils 93.3% * Sodium: 126, potassium 5.0, chloride 79, carbon dioxide 7.5, glucose 42, calcium 8.7, magnesium 2.6 * BUN: 25, creatinine 3.36, GFR 15 * The total bilirubin: 6.5, AST 21,929, ALT 3107 * Alkaline phosphatase 275 * Total creatine kinase: A 91 * CK-MB: 14.6 * Troponin: 0.22 * Total protein: 6.7, albumin 3.9 * PT: 50.7, INR 5.1, APTT 49.2 * Acetaminophen level: 29.4 * Ethyl alcohol level <3 * Urinalysis with occult blood and bacteria. Urine culture pending. * Blood culture pending * X-ray of the foot showed no acute fracture or dislocation * Chest x-ray showing no acute cardiopulmonary disease * CT had revealed mild cerebral and moderate cerebellar volume loss, out of proportion to age. Otherwise, no acute intra-cranial abnormalities. * Ultrasound of the abdomen/liver showing hepatomegaly with diffusely increased echogenicity consistent with hepatic steatosis vs. medical liver disease. Gallbladder wall thickening without cholelithiasis. Gallbladder wall prominence is somewhat non-specific and may be seen with chronic liver disease and hypoalbuminemia amongst other etiologies. An EKG showed sinus rhythm heart rate 92, QRS duration 103ms, QTC 439ms. No acute ST segment elevation. Patient received 500 mL normal saline bolus and thiamine 100 mg IV. Accu-Chek was reportedly 50 and the patient was given orange juice as well as half an amp of D50. Repeat evaluation of the patient's blood sugar was 45. The patient received another half amp of D50 and D5W was started at a maintenance rate. Patient's INR was elevated at 5.1. Since the patient is not on any anticoagulation, lab was called to request the patient's Tylenol level which was still pending. Acetadote was written to be started. Poison control was contacted secondary to possible Tylenol toxicity. Tylenol level ultimately ended up being 29.4. Patient was transfused with 3 units FFP's to correct INR prior to central line placement. Patient status post cardiac arrest this morning. She is now intubated and on multiple pressors as well as bicarbonate drip. H/H of 4.1/12.7. Platelets: 19 Ammonia level: 260 Palliative Care was consulted to assist with symptom management and to discuss with the family the benefits and burdens of her current illnesses and the options regarding future care. . Function/Cognitive Trajectory Patient ex- states the patient has a long history of EtOH abuse and has been hospitalized multiple times at [facility]. . Review of Systems ROS Limitations: Intubated, Altered Mental Status, Speech Impaired, Poor Historian Respiratory: COMPLAINS OF: Shortness of breath Gastrointestinal: COMPLAINS OF: Abdominal pain, DENIES: Black stools, Bloody stools, Vomiting blood Hematologic/Lymphatics: COMPLAINS OF: Bruising (ROS obtained from review of notes and family/staff report.), History of transfusions Past Family Social History Coded Allergies: No Known Allergies (Verified Allergy, Unknown, 01/24/18) Past Medical History History of EtOH abuse Alcohol withdrawal seizures History of GI bleed History of peptic ulcer disease Arthritis . Past Surgical History Tonsillectomy . Reported Medications No Reported Medications . Current Medications Medications (Trade) Dose Ordered Sig/Marli Route Start Time Stop Time Status Last Admin Acetylcysteine 6000 mg/Dextrose 1,030 ml @ 64.375 mls/ hr ONCE ONCE IV 01/25/18 04:30 01/25/18 20:29 01/25/18 06:20 (NS Flush) 2 ml UNSCH PRN IV FLUSH 01/24/18 23:45 (NS Flush) 2 ml BID IV FLUSH 01/25/18 09:00 (Dilaudid Pf Inj) 1 mg Q4H PRN IV PUSH 01/25/18 00:15 (Ativan Inj) 2 mg Q4H PRN IV PUSH 01/24/18 23:45 (Zofran Inj) 4 mg Q6H PRN IV PUSH 01/24/18 23:45 (Restoril) 15 mg HS PRN PO 01/24/18 23:45 (Duoneb Neb) 1 ampule Q2HR NEB PRN INH 01/24/18 23:45 Miscellaneous Information 1 Q361D XX 01/24/18 23:45 (Chlorhexidine 2% Cloth) 3 pack Taper DAILY@04 TOP 01/25/18 04:00 01/21/19 03:59 (Chlorhexidine 2% Cloth) 3 pack UNSCH PRN TOP 01/24/18 23:45 (Latoya-Colace) 1 tab BID PO 01/25/18 09:00 (Milk Of Magnesia Liq) 30 ml Q12H PRN PO 01/24/18 23:45 (Senokot) 17.2 mg Q12H PRN PO 01/24/18 23:45 (Dulcolax Supp) 10 mg DAILY PRN RECTAL 01/24/18 23:45 (Lactulose Liq) 30 ml DAILY PRN PO 01/24/18 23:45 Multivitamins 10 ml/Thiamine HCl 100 mg/Folic Acid 1 mg/Dextrose/ Sodium Chloride 511.2 ml @ 125 mls/hr Q24H IV 01/25/18 02:00 Albumin Human 500 ml @ 250 mls/hr Q6HR IV 01/25/18 00:45 01/25/18 07:34 Norepinephrine Bitartrate 250 ml @ 15 mls/hr TITRATE PRN IV 01/25/18 02:00 01/25/18 02:36 (Lactulose Liq) 30 ml QID PO 01/25/18 09:00 Sodium Bicarbonate 150 meq/Dextrose 1,150 ml @ 150 mls/hr Q7H40M IV 01/25/18 05:15 01/25/18 08:35 Vancomycin HCl 1250 mg/Sodium Chloride 262.5 ml @ 262.5 mls/ hr ONCE ONCE IV 01/25/18 10:00 01/25/18 10:59 Pharmacy Profile Note 0 ml @ 0 mls/hr UNSCH OTHER 01/25/18 06:45 (SoluCORTEF INJ) 100 mg Q8H IV PUSH 01/25/18 08:00 01/25/18 08:33 Phenylephrine HCl 40 mg/Dextrose 500 ml @ 30 mls/hr TITRATE PRN IV 01/25/18 07:00 01/25/18 07:45 (Brethine Inj) 1 mg UNSCH PRN SQ 01/25/18 07:00 Piperacillin Sod/ Tazobactam Sod 50 ml @ 100 mls/hr Q8H IV 01/25/18 09:00 Pharmacy Profile Note 0 ml @ 0 mls/hr UNSCH OTHER 01/25/18 07:00 (Xifaxan) 550 mg BID PO 01/25/18 09:00 Pantoprazole Sodium 80 mg/ Sodium Chloride 100 ml @ 10 mls/hr Q10H IV 01/25/18 08:17 01/25/18 07:45 Octreotide Acetate 500 mcg/ Sodium Chloride 500 ml @ 50 mls/hr Q10H IV 01/25/18 09:00 01/25/18 07:45 Azithromycin 500 mg/Sodium Chloride 250 ml @ 250 mls/hr Q24H IV 01/25/18 08:00 01/25/18 08:34 (D50w (Vial) Inj) 50 ml UNSCH PRN IV PUSH 01/25/18 07:30 (Glucagon Inj) 1 mg UNSCH PRN OTHER 01/25/18 07:30 (NovoLIN R SUPPLEMENTAL SCALE) 1 Q4HR SQ 01/25/18 08:00 Sodium Chloride 1,000 ml @ 999 mls/hr BOLUS ONCE IV 01/25/18 08:45 01/25/18 09:45 . Family History Strong familial history of substance abuse. Further information pending conversation with family. . Substance Use Tobacco: None known Alcohol: EtOH abuse Prescription med abuse: None known Illicits: None known . Psychosocial History Patient is . She has one adult daughter with whom she lives. She is emotionally supported by her ex 's family. . Spiritual/Cultural Factors Christianity davian . Documented care wishes: There are no known written advanced directives. . Today's verbally stated goals: Patient is unable to verbalize medical treatment goals secondary to her clinical condition. . Family/friends goals: Daughter verbalizing aggressive goals to the point of cardiopulmonary resuscitation. . Ethical and Legal Issues No known ethical or legal issues impacting care at this time. . Physical Exam Vital Signs Date Time Temp Pulse Resp B/P (MAP) Pulse Ox O2 Delivery O2 Flow Rate FiO2 01/25/18 08:53 94.1 104 28 102/66 85 01/25/18 08:00 100 01/25/18 07:45 101 91/52 01/25/18 06:00 100 01/25/18 05:55 96 100 01/25/18 05:45 100 01/25/18 05:31 95.3 102 20 90/64 93 01/25/18 05:08 95.2 103 21 84/66 97 01/25/18 05:00 95.2 106 26 89/59 98 01/25/18 04:20 95.0 109 22 86/49 91 01/25/18 04:15 107 74/47 01/25/18 04:08 94.8 107 37 137/65 (89) 01/25/18 04:00 94.6 107 37 86 01/25/18 03:50 108 01/25/18 03:33 93.9 104 32 87/42 (57) 100 01/25/18 03:25 93.7 105 34 83/45 (58) 100 01/25/18 03:16 93.6 104 33 167/72 (103) 91 01/25/18 03:11 93.4 106 31 98/49 (65) 99 01/25/18 03:08 93.2 105 34 100/58 (72) 97 01/25/18 03:05 93.2 105 25 76/36 (49) 100 01/25/18 03:03 93.0 103 34 98/49 (65) 100 01/25/18 02:50 92.8 100 34 97/40 (59) 100 01/25/18 02:43 92.7 99 34 82/42 (55) 67 01/25/18 02:36 97 81/55 01/25/18 02:34 92.7 97 26 81/55 (64) 66 01/25/18 02:30 92.5 97 28 79/52 (61) 73 01/25/18 02:29 92.5 96 27 68/45 (53) 81 01/25/18 02:28 92.5 95 26 80/45 (57) 85 01/25/18 02:24 92.3 95 31 82/33 (49) 79 01/25/18 02:10 91.9 93 30 72/40 (51) 100 01/25/18 02:08 91.9 93 29 72/48 (56) 99 01/25/18 02:01 91.8 92 22 75/41 (52) 100 01/25/18 02:00 91.8 91 29 01/25/18 01:54 91.9 87 29 76/37 (50) 01/25/18 01:33 84 30 66/38 (47) 01/25/18 01:30 01/25/18 01:30 84 31 76/44 (55) 01/25/18 01:00 28 106/56 (73) Room Air 01/25/18 00:58 129/60 (83) 01/24/18 23:45 92 14 77/42 (54) 95 Room Air 01/24/18 22:30 26 Room Air 01/24/18 21:25 97.8 87 15 80/43 (55) 100 Room Air . 01/25/18 01/26/18 19:00 07:00 Intake Total 20.0 ml Balance 20.0 ml Blood Product IV Normal Saline Flush 20.0 ml . Exam CONSTITUTIONAL/GENERAL: This is a chronically ill, middle-aged woman currently intubated on mechanical ventilation TUBES/LINES/DRAINS: ETT, PIV 2, CVL, Patel, warming blanket, OGT SKIN: Jaundice. Ecchymoses on upper extremities. No wounds seen anteriorly. Skin is cool to touch HEAD: Atraumatic. Normocephalic. EYES: + scleral icterus. No injection or drainage. Fundi not examined. ENT: Unable to assess hearing given clinical condition. Nose without bleeding or purulent drainage. NECK: Trachea midline. CARDIOVASCULAR: Bradycardic without murmurs, gallops, or rubs. No JVD. Peripheral pulses symmetric. RESPIRATORY/CHEST: Intubated on mechanical ventilation. Oxygen saturation in the mid 60s on 100% FiO2. Scattered rhonchi GASTROINTESTINAL: Abdomen is slightly distended with hypoactive bowel sounds GENITOURINARY: Without palpable bladder distension. Patel catheter in place. MUSCULOSKELETAL: Extremities without clubbing, cyanosis, or edema. Slight mottling to feet bilaterally LYMPHATICS: No palpable cervical or supraclavicular adenopathy. NEUROLOGICAL: Unresponsive. PSYCHIATRIC: Unable to assess secondary to clinical condition. . Diagnostic Tests Laboratory Laboratory Tests Test 01/24/18 22:05 01/25/18 00:35 01/25/18 01:05 01/25/18 01:06 White Blood Count 17.2 TH/MM3 (4.0-11.0) Red Blood Count 3.77 MIL/MM3 (4.00-5.30) Hemoglobin 12.3 GM/DL (11.6-15.3) Hematocrit 38.6 % (35.0-46.0) Mean Corpuscular Volume 102.6 FL (80.0-100.0) Mean Corpuscular Hemoglobin 32.7 PG (27.0-34.0) Mean Corpuscular Hemoglobin Concent 31.9 % (32.0-36.0) Red Cell Distribution Width 13.7 % (11.6-17.2) Platelet Count 53 TH/MM3 (150-450) Mean Platelet Volume 9.4 FL (7.0-11.0) Neutrophils (%) (Auto) 93.3 % (16.0-70.0) Lymphocytes (%) (Auto) 4.5 % (9.0-44.0) Monocytes (%) (Auto) 2.0 % (0.0-8.0) Eosinophils (%) (Auto) 0.1 % (0.0-4.0) Basophils (%) (Auto) 0.1 % (0.0-2.0) Neutrophils # (Auto) 16.1 TH/MM3 (1.8-7.7) Lymphocytes # (Auto) 0.8 TH/MM3 (1.0-4.8) Monocytes # (Auto) 0.3 TH/MM3 (0-0.9) Eosinophils # (Auto) 0.0 TH/MM3 (0-0.4) Basophils # (Auto) 0.0 TH/MM3 (0-0.2) CBC Comment AUTO DIFF Differential Total Cells Counted 100 Neutrophils % (Manual) 50 % (16-70) Band Neutrophils % 44 % (0-6) Lymphocytes % 5 % (9-44) Neutrophils # (Manual) 16.3 TH/MM3 (1.8-7.7) Myelocytes 1 % (0-0) Differential Comment FINAL DIFF MANUAL Toxic Vacuolation PRESENT (NONE SEEN) Platelet Estimate LOW (NORMAL) Platelet Morphology Comment NORMAL (NORMAL) Prothrombin Time 50.7 SEC (9.8-11.6) Prothromb Time International Ratio 5.1 RATIO Activated Partial Thromboplast Time 49.2 SEC (24.3-30.1) Blood Urea Nitrogen 25 MG/DL (7-18) 25 MG/DL (7-18) Creatinine 3.36 MG/DL (0.50-1.00) 3.08 MG/DL (0.50-1.00) Random Glucose 42 MG/DL (74-106) 188 MG/DL (74-106) Total Protein 6.7 GM/DL (6.4-8.2) 5.2 GM/DL (6.4-8.2) Albumin 3.9 GM/DL (3.4-5.0) Calcium Level 8.7 MG/DL (8.5-10.1) 6.8 MG/DL (8.5-10.1) Magnesium Level 2.6 MG/DL (1.5-2.5) Alkaline Phosphatase 275 U/L (45-117) Aspartate Amino Transf (AST/SGOT) 65877 U/L (15-37) Alanine Aminotransferase (ALT/SGPT) 3107 U/L (10-53) Total Bilirubin 6.5 MG/DL (0.2-1.0) Sodium Level 126 MEQ/L (136-145) 132 MEQ/L (136-145) Potassium Level 5.0 MEQ/L (3.5-5.1) 5.5 MEQ/L (3.5-5.1) Chloride Level 79 MEQ/L (98-107) 85 MEQ/L (98-107) Carbon Dioxide Level 7.5 MEQ/L (21.0-32.0) 8.3 MEQ/L (21.0-32.0) Anion Gap 40 MEQ/L (5-15) 39 MEQ/L (5-15) Estimat Glomerular Filtration Rate 15 ML/MIN (>89) 16 ML/MIN (>89) Total Creatine Kinase 891 U/L (26-192) Creatine Kinase MB 14.6 NG/ML (0.5-3.6) Creatine Kinase MB % 1.6 % (0.0-4.0) Troponin I 0.22 NG/ML (0.02-0.05) Salicylates Level LESS THAN 1.7 MG/DL Acetaminophen Level 29.4 MCG/ML (10.0-30.0) Ethyl Alcohol Level LESS THAN 3 MG/DL (0-5) Urine Color DARK-YELLOW (YELLW/STRAW) Urine Turbidity CLOUDY (CLEAR) Urine pH 5.5 (5.0-8.5) Urine Specific [place] 1.017 (1.002-1.035) Urine Protein 300 mg/dL (NEG-TRACE) Urine Glucose (UA) NEG mg/dL (NEG) Urine Ketones TRACE mg/dL (NEG) Urine Occult Blood MOD (NEG) Urine Nitrite NEG (NEG) Urine Bilirubin NEG (NEG) Urine Urobilinogen LESS THAN 2.0 MG/DL (LESS Urine Leukocyte Esterase NEG (NEG) Urine WBC 2 /hpf (0-5) Urine Amorphous Sediment OCC Urine Bacteria MANY /hpf (NONE) Microscopic Urinalysis Comment CULTURE INDICATED Urine Osmolality 317 MOSM/KG (300-1300) Urine Opiates Screen NEG (NEG) Urine Barbiturates Screen NEG (NEG) Urine Amphetamines Screen NEG (NEG) Urine Benzodiazepines Screen NEG (NEG) Urine Cocaine Screen NEG (NEG) Urine Cannabinoids Screen NEG (NEG) Serum Osmolality 306 MOSM/KG (275-295) Protein Corrected Calcium 7.8 MG/DL (8.5-10.1) B-Hydroxybutyrate 0.76 MMOL/L (0.00-0.39) Ammonia 260 MCMOL/L (11-32) Test 01/25/18 01:30 01/25/18 02:51 01/25/18 06:47 01/25/18 07:20 Nasal Screen MRSA (PCR) MRSA NOT DETECTED (NOT Blood Urea Nitrogen 24 MG/DL (7-18) Creatinine 3.03 MG/DL (0.50-1.00) Random Glucose 211 MG/DL (74-106) Total Protein 6.1 GM/DL (6.4-8.2) Albumin 3.7 GM/DL (3.4-5.0) Calcium Level 7.1 MG/DL (8.5-10.1) Phosphorus Level 7.0 MG/DL (2.5-4.9) Magnesium Level 2.3 MG/DL (1.5-2.5) Alkaline Phosphatase 199 U/L (45-117) Aspartate Amino Transf (AST/SGOT) 26835 U/L (15-37) Alanine Aminotransferase (ALT/SGPT) 2447 U/L (10-53) Total Bilirubin 5.7 MG/DL (0.2-1.0) Sodium Level 131 MEQ/L (136-145) Potassium Level 6.2 MEQ/L (3.5-5.1) Chloride Level 83 MEQ/L (98-107) Carbon Dioxide Level 6.5 MEQ/L (21.0-32.0) Anion Gap 42 MEQ/L (5-15) Estimat Glomerular Filtration Rate 16 ML/MIN (>89) Protein Corrected Calcium 7.6 MG/DL (8.5-10.1) Total Creatine Kinase 1919 U/L (26-192) Creatine Kinase MB 32.5 NG/ML (0.5-3.6) Creatine Kinase MB % 1.7 % (0.0-4.0) Blood Gas Puncture Site RT RADIAL Blood Gas Patient Temperature 98.6 Blood Gas HCO3 6 mmol/L (22-26) Blood Gas Base Excess -23.1 mmol/L (-2-2) Blood Gas Oxygen Saturation 92 % (90-100) Arterial Blood pH 6.96 (7.380-7.420) Arterial Blood Partial Pressure CO2 29 mmHg (38-42) Arterial Blood Partial Pressure O2 109 mmHg (61-120) Arterial Blood Oxygen Content 7.0 Vol % (12.0-20.0) Arterial Blood Carboxyhemoglobin 0.2 % (0-4) Arterial Blood Methemoglobin 2.1 % (0-2) Blood Gas Hemoglobin 5.2 G/DL (12.0-16.0) Oxygen Delivery Device VENTILATOR Blood Gas Ventilator Setting PRVC12/500/1.0/+5 Blood Gas Inspired Oxygen 100 % Prothrombin Time 28.2 SEC (9.8-11.6) Prothromb Time International Ratio 2.8 RATIO Activated Partial Thromboplast Time 51.3 SEC (24.3-30.1) Fibrinogen 90 mg/dL (227-377) Test 01/25/18 08:30 White Blood Count 7.3 TH/MM3 (4.0-11.0) Red Blood Count 1.21 MIL/MM3 (4.00-5.30) Hemoglobin 4.1 GM/DL (11.6-15.3) Hematocrit 12.7 % (35.0-46.0) Mean Corpuscular Volume 104.9 FL (80.0-100.0) Mean Corpuscular Hemoglobin 34.1 PG (27.0-34.0) Mean Corpuscular Hemoglobin Concent 32.5 % (32.0-36.0) Red Cell Distribution Width 13.6 % (11.6-17.2) Platelet Count 19 TH/MM3 (150-450) Mean Platelet Volume 8.2 FL (7.0-11.0) Neutrophils (%) (Auto) 90.7 % (16.0-70.0) Lymphocytes (%) (Auto) 7.5 % (9.0-44.0) Monocytes (%) (Auto) 1.7 % (0.0-8.0) Eosinophils (%) (Auto) 0.1 % (0.0-4.0) Basophils (%) (Auto) 0.0 % (0.0-2.0) Neutrophils # (Auto) 6.6 TH/MM3 (1.8-7.7) Lymphocytes # (Auto) 0.5 TH/MM3 (1.0-4.8) Monocytes # (Auto) 0.1 TH/MM3 (0-0.9) Eosinophils # (Auto) 0.0 TH/MM3 (0-0.4) Basophils # (Auto) 0.0 TH/MM3 (0-0.2) CBC Comment AUTO DIFF Differential Total Cells Counted 100 Neutrophils % (Manual) 72 % (16-70) Band Neutrophils % 20 % (0-6) Lymphocytes % 8 % (9-44) Neutrophils # (Manual) 6.7 TH/MM3 (1.8-7.7) Differential Comment FINAL DIFF MANUAL Toxic Granulation 1+ (NORMAL) Toxic Vacuolation PRESENT (NONE SEEN) Platelet Estimate RARE (NORMAL) Platelet Morphology Comment NORMAL (NORMAL) . Result Diagram: 01/25/18 0830 01/25/18 0251 Microbiology Microbiology Date/Time Source Procedure Growth Status 01/25/18 08:38 Blood Peripheral Aerobic Blood Culture Pending Received 01/25/18 08:38 Blood Peripheral Anaerobic Blood Culture Pending Received 01/25/18 08:30 Blood Peripheral Aerobic Blood Culture Pending Received 01/25/18 08:30 Blood Peripheral Anaerobic Blood Culture Pending Received 01/25/18 00:35 Urine Clean Catch Urine Culture Pending Received . Procedures 01/25/2018: Endotracheal intubation : CVL placement . Patient/Family Conference Present at Family Conference: Met with patient's daughter and asked [id number] at bedside. Spoke with patient's ex-, [id number] and another family member in the family conference room and again at bedside. . Family Conference Location: Bedside, Consult Room Issues Discussed: * Palliative care role, purpose, approach * Additional medical, psychosocial, and spiritual history * Patients general health, functional status, and cognitive changes in the months leading up to the current hospitalization * Patient/family understanding of the current medical problems * Patient/family understanding of prognosis * Current medical treatment options and benefits/burdens of those options * Questions answered to the best of my ability * Palliative care contact information provided . Assessment and Plan Disease Oriented Problem List: (1) History of ETOH abuse (2) History of peptic ulcer disease (3) History of GI bleed (4) Renal failure (5) Liver failure Symptom Scale: (1) Pain (2) Dyspnea Pertinent Non-Medical Issues Psychosocial: Patient is . She has one adult daughter with whom she lives. She is emotionally supported by her ex 's family. Spiritual: Christianity davian Legal: Per [place] statutes in the absence of written advanced directives healthcare proxy decision-making falls to the patient's adult daughter, Samantha Rey Ethical issues impacting care: No known ethical issues impacting care at this time. . Important Contacts Samantha Rey, daughter: [phone] . Code Status: No Code Plan * NO CODE. * Decision-making: Patient is currently not capacitated to participate in the establishment of her own medical treatment goals. Per [place] statutes in the absence of written advanced directives healthcare proxy decision-making falls to the patient's adult daughterSamantah. * Goals are aggressive up to the point of cardiopulmonary resuscitation. * Discussed patient with bedside nurses (Janett) and Dr. Watkins. * Palliative care contact information provided to the patient's family. * Patient is critically ill status post cardiac arrest earlier this morning with multiorgan system failure. Family is aware that the patient is critically ill and may not survive this hospitalization. The request in the event the patient should go into cardiopulmonary arrest again, that she be allowed to pass peacefully and naturally with no aggressive interventions. CODE STATUS change to NO CODE-DNR/DNI * chaplain Jason at bedside providing support. * Palliative care will continue to follow this patient throughout her hospitalization to establish trust, assist with symptom management and clarification of medical treatment goals. . Thank you for the opportunity to participate in the care of Ms. Rey. . Attestation To help prompt me to consider important information that might be impacting today's encounter and assessment, information from prior notes written by myself or my colleagues may have been "brought forward" into today's note. My signature on this note, however, is an attestation that I personally performed the exam, history, and/or decision-making noted today, and, unless otherwise indicated, the interactions with patient, family, and staff as well as the review of records all occurred today. I also attest that the listed assessment and stated plan reflect my best clinical judgment today based on the combination of historical information, prior notes, and today's exam/ interactions. When time spent is documented, it refers only to time spent today by the signer, or if indicated, combined time spent today by collaborating physician/nurse practitioner. . Marisela Murrell Jan 25, 2018 09:59
[2018-01-25] MEDS ORDERED: PIPERACIL-TAZO 2.25 GM PREMIX 50 ML IV SCH (10:00)
[2018-01-25] MEDS ORDERED: VANCOMYCIN INJ 1,250 MG in SODIUM CHLOR 0.9% 250 ML INJ 250 ML IV ONE (10:00)
--- NOTE | 2018-01-25 10:13 | PD.CONS ---
History of Present Illness Service Infectious Disease Consult Requested By Dr Tevin Pathak Reason for Consult Evaluate patient with severe sepsis Primary Care Physician No Primary Care Physician Diagnoses: History of Present Illness Patient seen and examined. Records reviewed. Patient is a 47-year-old female, brought into the hospital for evaluation of slurring of her speech. Patient apparently has not been eating or drinking, and has been binging alcohol in the last week. There was no mention of any respiratory complaints. She does have chronic pain syndrome. Patient apparently on the day of admission started complaining of abdominal pain. She has not had any vomiting. Patient according to the daughter Going to the bathroom because she had a sensation of needing to PE and have a bowel movement , but patient not really was not successful. She has known alcohol abuse, and apparently drinks a bottle of one at least every other day. On presentation to the ED she was afebrile. Her blood work showed a white count of 17.2, hemoglobin of 12, and platelet of 53. Her creatinine was elevated, and her LFTs were in the thousand. His x-ray was normal. On arrival to the ICU, patient had cardiac arrest, and was successfully resuscitated. She is currently intubated. On 3 pressors, with Levophed, vasopressin, and Storm- Synephrine. Her hemoglobin had dropped to 4. Chest x-ray on admission is now showing bilateral pulmonary infiltrates. She is currently hypothermic and on a warming blanket. Infectious disease consultation has been requested to evaluate the patient for possible severe sepsis. Review of Systems ROS Limitations: Clinical Condition, Intubated (Per daughter, no F/C, no N/V, no diarrhea, no resp complaints, C/O abdominal pain) Past Family Social History Allergies: Coded Allergies: No Known Allergies (Verified Allergy, Unknown, 01/24/18) Past Medical History Alcoholism Alcohol withdrawal seizures Peptic ulcer disease Arthritis Past Surgical History None Active Ordered Medications Current Medications Medications (Trade) Dose Ordered Sig/Marli Route Start Time Stop Time Status Last Admin Acetylcysteine 6000 mg/Dextrose 1,030 ml @ 64.375 mls/ hr ONCE ONCE IV 01/25/18 04:30 01/25/18 20:29 01/25/18 06:20 (NS Flush) 2 ml UNSCH PRN IV FLUSH 01/24/18 23:45 (NS Flush) 2 ml BID IV FLUSH 01/25/18 09:00 01/25/18 09:40 (Dilaudid Pf Inj) 1 mg Q4H PRN IV PUSH 01/25/18 00:15 (Ativan Inj) 2 mg Q4H PRN IV PUSH 01/24/18 23:45 (Zofran Inj) 4 mg Q6H PRN IV PUSH 01/24/18 23:45 (Restoril) 15 mg HS PRN PO 01/24/18 23:45 (Duoneb Neb) 1 ampule Q2HR NEB PRN INH 01/24/18 23:45 Miscellaneous Information 1 Q361D XX 01/24/18 23:45 (Chlorhexidine 2% Cloth) 3 pack Taper DAILY@04 TOP 01/25/18 04:00 01/21/19 03:59 (Chlorhexidine 2% Cloth) 3 pack UNSCH PRN TOP 01/24/18 23:45 (Latoya-Colace) 1 tab BID PO 01/25/18 09:00 (Milk Of Magnesia Liq) 30 ml Q12H PRN PO 01/24/18 23:45 (Senokot) 17.2 mg Q12H PRN PO 01/24/18 23:45 (Dulcolax Supp) 10 mg DAILY PRN RECTAL 01/24/18 23:45 (Lactulose Liq) 30 ml DAILY PRN PO 01/24/18 23:45 Multivitamins 10 ml/Thiamine HCl 100 mg/Folic Acid 1 mg/Dextrose/ Sodium Chloride 511.2 ml @ 125 mls/hr Q24H IV 01/25/18 02:00 Albumin Human 500 ml @ 250 mls/hr Q6HR IV 01/25/18 00:45 01/25/18 07:34 Norepinephrine Bitartrate 250 ml @ 15 mls/hr TITRATE PRN IV 01/25/18 02:00 01/25/18 02:36 (Lactulose Liq) 30 ml QID PO 01/25/18 09:00 Sodium Bicarbonate 150 meq/Dextrose 1,150 ml @ 150 mls/hr Q7H40M IV 01/25/18 05:15 01/25/18 08:35 Vancomycin HCl 1250 mg/Sodium Chloride 262.5 ml @ 262.5 mls/ hr ONCE ONCE IV 01/25/18 10:00 01/25/18 10:59 Pharmacy Profile Note 0 ml @ 0 mls/hr UNSCH OTHER 01/25/18 06:45 (SoluCORTEF INJ) 100 mg Q8H IV PUSH 01/25/18 08:00 01/25/18 08:33 Phenylephrine HCl 40 mg/Dextrose 500 ml @ 30 mls/hr TITRATE PRN IV 01/25/18 07:00 01/25/18 07:45 (Brethine Inj) 1 mg UNSCH PRN SQ 01/25/18 07:00 Piperacillin Sod/ Tazobactam Sod 50 ml @ 100 mls/hr Q8H IV 01/25/18 09:00 Pharmacy Profile Note 0 ml @ 0 mls/hr UNSCH OTHER 01/25/18 07:00 (Xifaxan) 550 mg BID PO 01/25/18 09:00 Pantoprazole Sodium 80 mg/ Sodium Chloride 100 ml @ 10 mls/hr Q10H IV 01/25/18 08:17 01/25/18 07:45 Octreotide Acetate 500 mcg/ Sodium Chloride 500 ml @ 50 mls/hr Q10H IV 01/25/18 09:00 01/25/18 07:45 Azithromycin 500 mg/Sodium Chloride 250 ml @ 250 mls/hr Q24H IV 01/25/18 08:00 01/25/18 08:34 (D50w (Vial) Inj) 50 ml UNSCH PRN IV PUSH 01/25/18 07:30 (Glucagon Inj) 1 mg UNSCH PRN OTHER 01/25/18 07:30 (NovoLIN R SUPPLEMENTAL SCALE) 1 Q4HR SQ 01/25/18 08:00 Family History Noncontributory Social History Lives at home, with the daughter No smoking No illicit drugs Significant alcohol use, drink a bottle of wine every other day Physical Exam Vital Signs Vital Signs Date Time Temp Pulse Resp B/P (MAP) Pulse Ox O2 Delivery O2 Flow Rate FiO2 01/25/18 08:53 94.1 104 28 102/66 85 01/25/18 08:00 100 01/25/18 07:45 101 91/52 01/25/18 06:00 100 01/25/18 05:55 96 100 01/25/18 05:45 100 01/25/18 05:31 95.3 102 20 90/64 93 01/25/18 05:08 95.2 103 21 84/66 97 01/25/18 05:00 95.2 106 26 89/59 98 01/25/18 04:20 95.0 109 22 86/49 91 01/25/18 04:15 107 74/47 01/25/18 04:08 94.8 107 37 137/65 (89) 01/25/18 04:00 94.6 107 37 86 01/25/18 03:50 108 01/25/18 03:33 93.9 104 32 87/42 (57) 100 01/25/18 03:25 93.7 105 34 83/45 (58) 100 01/25/18 03:16 93.6 104 33 167/72 (103) 91 01/25/18 03:11 93.4 106 31 98/49 (65) 99 01/25/18 03:08 93.2 105 34 100/58 (72) 97 01/25/18 03:05 93.2 105 25 76/36 (49) 100 01/25/18 03:03 93.0 103 34 98/49 (65) 100 01/25/18 02:50 92.8 100 34 97/40 (59) 100 01/25/18 02:43 92.7 99 34 82/42 (55) 67 01/25/18 02:36 97 81/55 01/25/18 02:34 92.7 97 26 81/55 (64) 66 01/25/18 02:30 92.5 97 28 79/52 (61) 73 01/25/18 02:29 92.5 96 27 68/45 (53) 81 01/25/18 02:28 92.5 95 26 80/45 (57) 85 01/25/18 02:24 92.3 95 31 82/33 (49) 79 01/25/18 02:10 91.9 93 30 72/40 (51) 100 01/25/18 02:08 91.9 93 29 72/48 (56) 99 01/25/18 02:01 91.8 92 22 75/41 (52) 100 01/25/18 02:00 91.8 91 29 01/25/18 01:54 91.9 87 29 76/37 (50) 01/25/18 01:33 84 30 66/38 (47) 01/25/18 01:30 01/25/18 01:30 84 31 76/44 (55) 01/25/18 01:00 28 106/56 (73) Room Air 01/25/18 00:58 129/60 (83) 01/24/18 23:45 92 14 77/42 (54) 95 Room Air 01/24/18 22:30 26 Room Air 01/24/18 21:25 97.8 87 15 80/43 (55) 100 Room Air Physical Exam GENERAL: Patient is a well-nourished, well-developed female, skin is sallow, pale, and jaundiced, unresponsive on the vent, got fentanyl for intubation, not in respiratory distress. SKIN: Cool, dry, jaundiced. Pale/sallow. No generalized rash, no ecchymoses and no evidence of embolic lesions. HEAD: Atraumatic. Normocephalic. No temporal wasting, or tenderness. EYES: Pale conjunctiva. Has scleral hemorrhage bilaterally. EARS, NOSE AND THROAT: Nose without bleeding or purulent nasal discharge. Orally intubated, has OGT in place, with some maroon GI contents. NECK: Trachea midline. Supple and not tender, no meningeal signs. Lines in place CARDIOVASCULAR: Tachycardic, regular. RESPIRATORY: Bilateral coarse rhonchi. ABDOMEN: Distended abdomen, hypoactive bowel sounds, grimacing during palpation. EXTREMITIES: No clubbing, or edema. Cool feet with some mottling. NEUROLOGICAL: Unresponsive, no Babinski, no ankle clonus PSYCHIATRIC: Unable to asses LINE: No evidence of infection : Patel in place, low UO Laboratory Laboratory Tests Test 01/24/18 22:05 01/25/18 00:35 01/25/18 01:05 01/25/18 01:06 White Blood Count 17.2 Red Blood Count 3.77 Hemoglobin 12.3 Hematocrit 38.6 Mean Corpuscular Volume 102.6 Mean Corpuscular Hemoglobin 32.7 Mean Corpuscular Hemoglobin Concent 31.9 Red Cell Distribution Width 13.7 Platelet Count 53 Mean Platelet Volume 9.4 Neutrophils (%) (Auto) 93.3 Lymphocytes (%) (Auto) 4.5 Monocytes (%) (Auto) 2.0 Eosinophils (%) (Auto) 0.1 Basophils (%) (Auto) 0.1 Neutrophils # (Auto) 16.1 Lymphocytes # (Auto) 0.8 Monocytes # (Auto) 0.3 Eosinophils # (Auto) 0.0 Basophils # (Auto) 0.0 CBC Comment AUTO DIFF Differential Total Cells Counted 100 Neutrophils % (Manual) 50 Band Neutrophils % 44 Lymphocytes % 5 Neutrophils # (Manual) 16.3 Myelocytes 1 Differential Comment FINAL DIFF MANUAL Toxic Vacuolation PRESENT Platelet Estimate LOW Platelet Morphology Comment NORMAL Prothrombin Time 50.7 Prothromb Time International Ratio 5.1 Activated Partial Thromboplast Time 49.2 Blood Urea Nitrogen 25 25 Creatinine 3.36 3.08 Random Glucose 42 188 Total Protein 6.7 5.2 Albumin 3.9 Calcium Level 8.7 6.8 Magnesium Level 2.6 Alkaline Phosphatase 275 Aspartate Amino Transf (AST/SGOT) 60434 Alanine Aminotransferase (ALT/SGPT) 3107 Total Bilirubin 6.5 Sodium Level 126 132 Potassium Level 5.0 5.5 Chloride Level 79 85 Carbon Dioxide Level 7.5 8.3 Anion Gap 40 39 Estimat Glomerular Filtration Rate 15 16 Total Creatine Kinase 891 Creatine Kinase MB 14.6 Creatine Kinase MB % 1.6 Troponin I 0.22 Salicylates Level LESS THAN 1.7 Acetaminophen Level 29.4 Ethyl Alcohol Level LESS THAN 3 Urine Color DARK-YELLOW Urine Turbidity CLOUDY Urine pH 5.5 Urine Specific [place] 1.017 Urine Protein 300 Urine Glucose (UA) NEG Urine Ketones TRACE Urine Occult Blood MOD Urine Nitrite NEG Urine Bilirubin NEG Urine Urobilinogen LESS THAN 2.0 Urine Leukocyte Esterase NEG Urine WBC 2 Urine Amorphous Sediment OCC Urine Bacteria MANY Microscopic Urinalysis Comment CULTURE INDICATED Urine Osmolality 317 Urine Opiates Screen NEG Urine Barbiturates Screen NEG Urine Amphetamines Screen NEG Urine Benzodiazepines Screen NEG Urine Cocaine Screen NEG Urine Cannabinoids Screen NEG Serum Osmolality 306 Protein Corrected Calcium 7.8 B-Hydroxybutyrate 0.76 Ammonia 260 Test 01/25/18 01:30 01/25/18 02:51 01/25/18 06:47 01/25/18 07:20 Nasal Screen MRSA (PCR) MRSA NOT DETECTED Blood Urea Nitrogen 24 Creatinine 3.03 Random Glucose 211 Total Protein 6.1 Albumin 3.7 Calcium Level 7.1 Phosphorus Level 7.0 Magnesium Level 2.3 Alkaline Phosphatase 199 Aspartate Amino Transf (AST/SGOT) 65750 Alanine Aminotransferase (ALT/SGPT) 2447 Total Bilirubin 5.7 Sodium Level 131 Potassium Level 6.2 Chloride Level 83 Carbon Dioxide Level 6.5 Anion Gap 42 Estimat Glomerular Filtration Rate 16 Protein Corrected Calcium 7.6 Total Creatine Kinase 1919 Creatine Kinase MB 32.5 Creatine Kinase MB % 1.7 Blood Gas Puncture Site RT RADIAL Blood Gas Patient Temperature 98.6 Blood Gas HCO3 6 Blood Gas Base Excess -23.1 Blood Gas Oxygen Saturation 92 Arterial Blood pH 6.96 Arterial Blood Partial Pressure CO2 29 Arterial Blood Partial Pressure O2 109 Arterial Blood Oxygen Content 7.0 Arterial Blood Carboxyhemoglobin 0.2 Arterial Blood Methemoglobin 2.1 Blood Gas Hemoglobin 5.2 Oxygen Delivery Device VENTILATOR Blood Gas Ventilator Setting PRVC12/500/1.0/+5 Blood Gas Inspired Oxygen 100 Prothrombin Time 28.2 Prothromb Time International Ratio 2.8 Activated Partial Thromboplast Time 51.3 Fibrinogen 90 Test 01/25/18 08:30 White Blood Count 7.3 Red Blood Count 1.21 Hemoglobin 4.1 Hematocrit 12.7 Mean Corpuscular Volume 104.9 Mean Corpuscular Hemoglobin 34.1 Mean Corpuscular Hemoglobin Concent 32.5 Red Cell Distribution Width 13.6 Platelet Count 19 Mean Platelet Volume 8.2 Neutrophils (%) (Auto) 90.7 Lymphocytes (%) (Auto) 7.5 Monocytes (%) (Auto) 1.7 Eosinophils (%) (Auto) 0.1 Basophils (%) (Auto) 0.0 Neutrophils # (Auto) 6.6 Lymphocytes # (Auto) 0.5 Monocytes # (Auto) 0.1 Eosinophils # (Auto) 0.0 Basophils # (Auto) 0.0 CBC Comment AUTO DIFF Differential Total Cells Counted 100 Neutrophils % (Manual) 72 Band Neutrophils % 20 Lymphocytes % 8 Neutrophils # (Manual) 6.7 Differential Comment FINAL DIFF MANUAL Toxic Granulation 1+ Toxic Vacuolation PRESENT Platelet Estimate RARE Platelet Morphology Comment NORMAL Blood Urea Nitrogen 23 Creatinine 2.94 Random Glucose 578 Total Protein 4.4 Albumin 2.9 Calcium Level 5.8 Alkaline Phosphatase 102 Aspartate Amino Transf (AST/SGOT) 9591 Alanine Aminotransferase (ALT/SGPT) 1052 Total Bilirubin 2.9 Sodium Level 130 Potassium Level 4.3 Chloride Level 83 Carbon Dioxide Level 11.2 Anion Gap 36 Estimat Glomerular Filtration Rate 17 Serum Osmolality 324 Lactic Acid Level 22.6 Protein Corrected Calcium 7.0 Date/Time Source Procedure Growth Status 01/25/18 08:38 Blood Peripheral Aerobic Blood Culture Pending Received 01/25/18 08:38 Blood Peripheral Anaerobic Blood Culture Pending Received 01/25/18 00:35 Urine Clean Catch Urine Culture Pending Received Result Diagram: 01/25/1882901/25/18829 Imaging RADIOLOGY STUDIES/FILMS REVIEWED Assessment and Plan Assessment and Plan IMPRESSION Sepsis syndrome, shock, S/P cardiac arrest with MOSF - main complaint is abdominal pain; did not have any other complaints prior to admission - ?due to ETOH hepatitis - ?internal bleed - hypovolemic shock ETOH hepatitis Severe anemia Thrombocytopenia possibly due to ETOH liver disease, ?sepsis, ?DIC Low fibronogen ?DIC, or due to her liver disease Renal failure Respiratory failure, now with joya infiltrates likely due to ARDS S/P cardiac arrest possibly due to shock, hypovolemia RECOMMENDATION Check C/S: BC, UC and sputum Agree with CT A/P, ?retroperitoneal bleed Agree with empiric Abx: Vanco and Zosyn Follow C/S BP support Blood product support Monitor progress Prognosis guarded I will follow along with you Thank you for this consultation Discussed Condition With Spoke with daughter D/W Jacy Rivas MD Jan 25, 2018 10:12
[2018-01-25 10:27] LABS: HEPATITIS A AB IGM NEGATIVE (NEGATIVE); HEPATITIS B CORE AB IGM NEGATIVE (NEGATIVE); HEPATITIS B SURFACE ANTIGEN NEGATIVE (NEGATIVE); HEPATITIS C AB IgG NEGATIVE (NEGATIVE)
[2018-01-25] MEDS ORDERED: EPINEPHrine HCL (1:10,000) 1 MG/10 ML SYRINGE IV ONE (11:01)
[2018-01-25] MEDS ORDERED: SODIUM BICARBONATE 8.4% INJ 50 MEQ/50 ML SYR IV ONE (11:01)
--- NOTE | 2018-01-25 12:25 | EKG ---
Date Performed: 01/24/2018 Time Performed: 21:44:39 PTAGE: 47 years EKG: Sinus rhythm NORMAL ECG NO PREVIOUS TRACING 01/24/20182043 DOCTOR: Chivo Cabral Interpretating Date/Time 01/25/2018 12:22:00
== END 2018-01-25 11:02 | disposition expired | DRG 871 ==
LOC: NEPE 21:19 → NEDA 01-25 00:05 → HIMN 01-25 01:25
PROVIDERS: ADMIT Internal Medicine Critical Care Medicine; ATTEND Internal Medicine Critical Care Medicine
PROC: 0T9B70Z Drainage of Bladder with Drainage Device, Via Natural or Artificial Opening (ICD-10-PCS; principal; 2018-01-25)
PROC: 5A1935Z Respiratory Ventilation, Less than 24 Consecutive Hours (ICD-10-PCS; 2018-01-25)
PROC: 0BH17EZ Insertion of Endotracheal Airway into Trachea, Via Natural or Artificial Opening (ICD-10-PCS; 2018-01-25)
PROC: 05HN33Z Insertion of Infusion Device into Left Internal Jugular Vein, Percutaneous Approach (ICD-10-PCS; 2018-01-25)
PROC: B544ZZA Ultrasonography of Left Jugular Veins, Guidance (ICD-10-PCS; 2018-01-25)
PROC: 30243K1 Transfusion of Nonautologous Frozen Plasma into Central Vein, Percutaneous Approach (ICD-10-PCS; 2018-01-25)
PROC: 30243N1 Transfusion of Nonautologous Red Blood Cells into Central Vein, Percutaneous Approach (ICD-10-PCS; 2018-01-25)
DX: A41.9 Sepsis, unspecified organism (principal); R65.21 Severe sepsis with septic shock; K72.00 Acute and subacute hepatic failure without coma; J96.90 Respiratory failure, unspecified, unspecified whether with hypoxia or hypercapnia; R57.1 Hypovolemic shock; J80 Acute respiratory distress syndrome; N17.9 Acute kidney failure, unspecified; K92.2 Gastrointestinal hemorrhage, unspecified; D69.6 Thrombocytopenia, unspecified; K70.10 Alcoholic hepatitis without ascites; I95.9 Hypotension, unspecified; I46.9 Cardiac arrest, cause unspecified; E87.70 Fluid overload, unspecified; E87.5 Hyperkalemia; F10.20 Alcohol dependence, uncomplicated; F41.9 Anxiety disorder, unspecified; R41.82 Altered mental status, unspecified; R47.81 Slurred speech; R10.30 Lower abdominal pain, unspecified; Z51.5 Encounter for palliative care; G89.4 Chronic pain syndrome; R91.8 Other nonspecific abnormal finding of lung field; D64.9 Anemia, unspecified; K76.0 Fatty (change of) liver, not elsewhere classified; M19.90 Unspecified osteoarthritis, unspecified site; Z87.11 Personal history of peptic ulcer disease
CPT/HCPCS: 31500; 36430; 36556; 36600; 70450; 71045; 73620; 76705; 76937; 80048; 80053; 80074; 80307; 81001; 82010; 82140; 82550; 82552; 82805; 82948; 83605; 83735; 83930; 83935; 84100; 84155; 84484; 84703; 85007; 85027; 85384; 85610; 85730; 86850; 86900; 86901; 86920; 86927; 86965; 87040; 87086; 87641; 93005; 94002; 96365; 96368; 96375; C9113; J0132; J0171; J0456; J0610; J1720; J1815; J2250; J2354; J2370; J3010; J3411; J3430; J7030; J7040; J7050; J7060; J7070; P9016; P9017; P9035; P9045